=== PATIENT | female | born 1965 | race Caucasian/White ===

== ENCOUNTER → 2018-05-05 10:25 | Outpatient (CLI) | payer BC, OTHER, SELFPAY ==
[2018-05-05 11:22] LABS: Follicle Stimulating Hormone 83.7 mIU/mL
== END ==
PROVIDERS: Visit Provider Obstetrics & Gynecology
DX: N95.2 Postmenopausal atrophic vaginitis (principal)
CPT/HCPCS: 36415; 83001

== ENCOUNTER 2018-10-01 07:45 | Emergency (ER) | payer BC, OTHER, SELFPAY ==
[2018-10-01 07:45] VITALS: BP 124/74; PULSE 97; RESP 18; TEMP 36.5; O2SAT 99; BMI 24.8
--- NOTE | 2018-10-01 08:01 | CT_ITS ---
STUDY: CT ABDOMEN AND PELVIS WITHOUT CONTRAST REASON FOR EXAM: Female, 52 years old. Right-sided flank pain. Urinary retention. RADIATION DOSAGE (If Supplied By Facility): CTDIvol = ( 7.07 ) mGy, DLP = ( 318.00 ) mGycm TECHNIQUE: Transaxial images were obtained from the dome of the diaphragm to the symphysis pubis without oral contrast, and without intravenous contrast. Sagittal and coronal images were reconstructed. Individualized dose optimization techniques were used for this CT. COMPARISON: None. FINDINGS: The visualized lung bases are unremarkable. The visualized portions of the heart are within normal limits. Normal liver. Normal gallbladder and extrahepatic biliary system. Normal spleen. Normal pancreas. Normal bilateral adrenal glands. There is engorgement of the right kidney. Right perinephric and right periureteric stranding. Moderate degree of right hydronephrosis and right hydroureter due to a 3.2 mm calculus at the right ureterovesical junction. Left parapelvic cysts. Normal visualized stomach. Normal small intestine. Normal colon. The appendix is visualized and appears normal. Normal abdominal aorta. Normal inferior vena cava. Normal retroperitoneum. Normal urinary bladder. Phleboliths are seen within the pelvis. Small bilateral benign-appearing inguinal lymph nodes. There is a small umbilical hernia containing fat. Disc space narrowing and disc degeneration at the L5-S1 level. CT/Abdomen/Pelvis without Cont IMPRESSION: Moderate degree of right hydronephrosis and right hydroureter due to a 3.2 mm calculus at the right ureterovesical junction. Enlargement of the right kidney as well as a perinephric and periureteric stranding. Left parapelvic renal cysts. Electronically Signed: Scooter Perez MD at 9:19 EST , Service support ,
[2018-10-01 08:18] LABS: Mucous, Urine 0 SEEN /hpf (<or=2+); Red Blood Cells-Urine 0 SEEN /hpf (0-5)
[2018-10-01 08:21] LABS: Absolute Lymphocyte Count 0.55 X10^3/ul (0.83-4.51); Absolute Neutrophil Count 10.5 X10^3/uL (2.0-7.7); Basophil# 0.01 X10^3/uL; Basophil% 0.1 % (0-1); Eosinophil# 0.01 X10^3/uL; Eosinophils% 0.1 % (0-5); Hematocrit 41.8 % (37-47); Hemoglobin 13.7 g/dl (12.0-15.0); Lymphocyte # 0.55 X10^3/ul (4.0); Lymphocyte % 4.8 % (19-41); Mean Corp Hgb Conc 32.8 g/gl (32-36); Mean Corpuscular Hgb 30.1 pg (27.0-32.0); Mean Corpuscular Volume 91.9 fL (81-99); Mean Platelet Vol. 10.1 fl (6.2-12.0); Monocyte# 0.38 X10^3/uL; Monocyte% 3.3 % (0-10); Neutrophil # 10.46 X10^3/uL (2.7-7.7); Neutrophil % 91.5 % (47-70); Platelet Count 226 K/mm3 (150-450); RBC Distribution Width CV 12.4 % (11.6-14.6); RBC Distribution Width SD 40.6 fl (35.1-43.9); Red Blood Count 4.55 M/mm3 (4.2-5.4); White Blood Count 11.4 K/mm3 (4.4-11.0)
[2018-10-01 08:23] LABS: Differential Indicated SCAN CRITERIA MET; POSITIVE COUNT NO; POSITIVE DIFFERENTIAL YES; POSITIVE MORPHOLOGY NO
[2018-10-01 08:23] LABS: Color, Urine Yellow (Yellow); Glucose, Dipstick Normal (Normal); Ketone-Dipstick Negative (Negative); Leukocyte Esterase-Dipstick 100 /ul (Negative); Nitrite-Dipstick Negative (Negative); Occult Blood-Urine 50 /ul (Negative); Protein-Dipstick 15 mg/dl (Negative); Specific Gravity, Urine 1.025 (1.002-1.030); Urine Bilirubin Dipstick Negative (Negative); Urine Clarity Clear (Clear); Urine Urobilinogen Normal (Normal)
[2018-10-01] MEDS: 0.9% Normal Saline 1,000 ML 1000 ML IV (08:25)
[2018-10-01] MEDS: Ketorolac 30 MG/ML Syringe IV (08:25)
[2018-10-01 08:29] LABS: Lipase 130 U/L (73-393)
[2018-10-01 08:42] LABS: Pregnancy, Serum, hCG Quali. NEGATIVE Negative (0-9 Nonpreg)
[2018-10-01 08:43] LABS: Bacteria 1+ /hpf (None Seen); Squamous Epithelial Cells - UA 0-5 SEEN /hpf (5-10); White Blood Cells 0-5 SEEN /hpf (0-5)
[2018-10-01 09:23] LABS: ALB/GLOB Ratio 1.3 RATIO (0.9-2.4); AST(SGOT) 16 U/L (15-37); Alanine Aminotransfer ALT/SGPT 14 U/L (13-56); Albumin, Serum 4.2 g/dL (3.2-5.0); Alkaline Phosphatase 99 U/L (45-117); Anion Gap 10 (5-15); BUN 19 mg/dL (7-18); BUN/Creat Ratio 15.1 RATIO (10-20); Calcium,Total 9.1 mg/dL (8.5-10.1); Chloride 106 mmol/L (98-107); Creatinine, Serum 1.26 mg/dL (0.55-1.02); EST Glomerular Filtration Rate 47 mL/min (>60); Est Glom Filt Rate - Afr Amer 57 mL/min (>60); Estimated Creatinine Clearance 45.61 ml/min; Globulin 3.2 g/dL (2.2-4.2); Glucose 160 mg/dL (74-106); Potassium 3.9 mmol/L (3.5-5.1); Protein, Total 7.4 g/dL (6.4-8.2); Sodium Level 142 mmol/L (136-145)
--- NOTE | 2018-10-01 09:40 | ED.DCSUM_ITS ---
- ER Visit Summary Date of Service: 10/01/18 Chief Complaint: Pain History of Present Illness: The patient is a 52 F with right lower abdominal. Symptoms are sharp and stabbing. Patient tried Tums with no relief. She also reports decreased urine and one episode of vomiting. No history of this in the past. 2 C-sections. Physical Examination: Afebrile and vital signs unremarkable. Right pelvis tender to palpation. Mild CVA tenderness on the right. Otherwise exam unremarkable. Test Results: White count 11.4. Glucose 160, BUN 19, creatinine 1.26. Lipase and liver are normal. Urinalysis shows bacteria and 0-5 white cells. Positive leukocyte esterase. Culture pending. negative. CT showed a left renal cyst, mild right hydronephrosis and hydroureter with a 3.2 mm right UVJ stone. Emergency Department Course and Treatment: Patient treated with fluids and Toradol. She had good improvement of her pain but it started to return. She was treated with Grahn. Workup was unremarkable. She did have some elevation of her creatinine and a possible evolving UTI. Culture was sent. She was treated with Keflex. Plan will be outpatient follow-up with Dr. Acevedo. Prescription for pain medicine, Flomax, Keflex. Strain urine. Return for any new or worsening issues that may require hospitalization. Treatment Plan: As above Disposition: Discharge Impression: 1. Right ureteral colic This note was generated with [employer] dictation software. It may contain incorrect words, spelling, and punctuation that were not noted in review of the chart prior to signing ED Disposition - Plan for ED Patient: Referrals: Elsa Ferreira MD [Primary Care Provider] -
--- NOTE | 2018-10-01 09:40 | ED.DEP ---
ED Disposition - Plan for ED Patient: Instructions: ED Stone Renal W Colic Prescriptions: Hydrocodone Bitart/Apap 5-325 [[place] 5MG-325MG] 1 tab PO Q6H PRN PRN 3 Days #12 tab PRN Reason: Pain Ondansetron [Zofran Odt] 4 mg PO Q8H PRN PRN #10 tab PRN Reason: Nausea Cephalexin [Keflex] 500 mg PO Q6 #28 cap Tamsulosin HCl [Flomax] 0.4 mg PO DAILY #7 cap Referrals: Liam Acevedo MD [STAFF PHYSICIAN] -
[2018-10-01] MEDS: Ondansetron 4 MG/2 ML Vial IV (10:17)
[2018-10-01] MEDS: HYDROcodone Bitartrate/Apap 5/325 Tablet PO (10:17)
[2018-10-01] MEDS: Cephalexin 250 MG Capsule 500 MG PO (10:17)
[2018-10-01 10:28] VITALS: BP 125/83; PULSE 82; RESP 18; O2SAT 99
== END 2018-10-01 10:33 | disposition home or self-care (01) ==
PROVIDERS: Emergency Provider Emergency Medicine; Family Provider Internal Medicine; PCP Internal Medicine
DX: N13.2 Hydronephrosis with renal and ureteral calculous obstruction (principal)
CPT/HCPCS: 74176; 80053; 81001; 83690; 84703; 85025; 87086; 87088; 96361; 96374; 96375; 99284; A4216; J2405

== ENCOUNTER → 2018-10-06 16:36 | Outpatient (CLI) | payer BC, OTHER, SELFPAY ==
[2018-10-01 07:45] VITALS: BMI 24.8
--- NOTE | 2018-10-06 11:30 | CALC_PTH ---
PATIENT: TOBIN CLARKE LOC: [facility] U#:[id number] AGE/SX: 59/F ROOM: RE10/06/[address]: ROBINSON Yoon : 1965 BED: DIS: SPEC #: [id number] RECD: 10/06/18 16:47 STATUS: MOHAN FLORENTIN #: [id number] RICO: 10/06/18 11:[address]: Giselle Al NP DEPT: SURGICAL PATHOLOGY RECD BY: Tom Delaney ENTERED: 10/07/18 08:26 SP TYPE: Calculi OTHR DR: Dr. Elsa Ferreira MD Tissues: CALCULI Procedures: Surgery Specimen Level I HEADER OPERATION: Not noted PRE-OP DIAGNOSIS: Kidney stone TISSUE SUBMITTED: Kidney stone protocol GROSS DIAGNOSIS A fragment of stone, clinically kidney stone, submitted entirely for stone analysis. NOEMÍ:rebecca 10/07/18 COMMENT The calculus is submitted in its entirety for chemical stone analysis. The results from this study will be reported separately. GROSS DESCRIPTION Received is one container labeled with the patient's name and not further designated. The specimen consists of a fragment of brownish-black stone measuring 0.3 x 0.2 x 0.2 cm. The entire specimen is submitted for stone analysis. / NOEMÍ:rebecca 10/07/18 CPT: 04018
[2018-10-19 17:10] LABS: Ca Oxalate, Monohydrate 90 % (.); Size 4x3x2 mm (.)
== END ==
PROVIDERS: Family Provider Internal Medicine; PCP Internal Medicine; Referring Provider Nurse Practitioner Adult Health; Visit Provider Nurse Practitioner Adult Health
DX: N20.0 Calculus of kidney (principal)
CPT/HCPCS: 82360; 88300

== ENCOUNTER → 2018-10-30 15:31 | Outpatient (CLI) | payer BC, OTHER, SELFPAY ==
[2018-10-01 07:45] VITALS: BMI 24.8
[2018-10-30 16:37] LABS: Creatinine, Serum 0.88 mg/dL (0.55-1.02); EST Glomerular Filtration Rate 72 mL/min (>60); Est Glom Filt Rate - Afr Amer 87 mL/min (>60)
[2018-10-30 16:57] LABS: Color, Urine Yellow (Yellow); Glucose, Dipstick Normal (Normal); Ketone-Dipstick Negative (Negative); Leukocyte Esterase-Dipstick 500 /ul (Negative); Nitrite-Dipstick Negative (Negative); Occult Blood-Urine 10 /ul (Negative); Protein-Dipstick Negative (Negative); Specific Gravity, Urine 1.015 (1.002-1.030); Urine Bilirubin Dipstick Negative (Negative); Urine Clarity Clear (Clear); Urine Urobilinogen 4 mg/dl (Normal); Urine pH 6.5 (5.0 - 8.0)
[2018-10-30 17:15] LABS: White Blood Cells 10-25 SEEN /hpf (0-5)
[2018-10-30 17:16] LABS: Bacteria 1+ /hpf (None Seen); Mucous, Urine 1+ /hpf (<or=2+); Red Blood Cells-Urine 0-5 SEEN /hpf (0-5); Squamous Epithelial Cells - UA 0-5 SEEN /hpf (5-10)
== END ==
PROVIDERS: Family Provider Internal Medicine; PCP Internal Medicine; Referring Provider Nurse Practitioner Adult Health; Visit Provider Nurse Practitioner Adult Health
DX: N20.1 Calculus of ureter (principal); R31.29 Other microscopic hematuria; R79.89 Other specified abnormal findings of blood chemistry
CPT/HCPCS: 36415; 81001; 82565

== ENCOUNTER → 2019-07-08 11:44 | Outpatient (CLI) | payer BC, OTHER, SELFPAY ==
[2019-07-12 16:07] LABS: Age Gdln ACOG Testing 30-65 (.)
[2019-07-12 22:31] LABS: HPV APTIMA, High Risk Negative (Negative); HPV Reflexed? YES, CHARGE PATIENT
== END ==
PROVIDERS: Family Provider Internal Medicine; PCP Internal Medicine; Visit Provider Obstetrics & Gynecology
DX: Z12.4 Encounter for screening for malignant neoplasm of cervix (principal)
CPT/HCPCS: 87624; 88175; G0145

== ENCOUNTER → 2019-08-04 16:17 | Outpatient (CLI) | payer BC, OTHER, SELFPAY ==
--- NOTE | 2019-08-04 16:20 | BI_ITS ---
MAMMOGRAPHY - BILATERAL SCREENING REASON FOR EXAM: Female, 53 years old. Routine annual screening examination. PERTINENT HISTORY: Aunt with breast cancer. TECHNIQUE: Digital bilateral breast will (3D mammographic acquisition) in the CC and MLO projections. 2-D mediolateral oblique (MLO) and craniocaudad (CC) views of both breasts were obtained. CAD: Full Field Digital Mammography with Computer Added Detection was performed. COMPARISON: Comparison is made with prior examination dated August 29, 2015. FINDINGS: Breast Composition: The breasts are heterogeneously dense, which may obscure small masses. There are no dominant masses or suspicious calcifications. Stable small benign-appearing bilateral axillary lymph nodes. No other significant abnormalities are identified. There has been no significant change since the prior study. BI/SCREEN MAMM (CAD) W/WILL BILAT IMPRESSION: Stable bilateral screening mammogram. Yearly follow-up mammogram recommended. (A) ASSESSMENT CATEGORY: BIRADS Category 2: Benign. A letter regarding these results will be sent to the patient by the facility within 30 days. Approximately 10% of breast cancers are not detected by mammography. A normal mammogram should not delay biopsy of a clinically suspicious abnormality. [id number] Electronically Signed: Scooter Perez, at 9:13 EST , Service support ,
== END ==
PROVIDERS: Family Provider Internal Medicine; PCP Internal Medicine; Referring Provider Obstetrics & Gynecology; Visit Provider Obstetrics & Gynecology
DX: Z12.31 Encounter for screening mammogram for malignant neoplasm of breast (principal)
CPT/HCPCS: 77063; 77067

== ENCOUNTER → 2022-02-07 | Outpatient (CLI) | payer BC, OTHER, SELFPAY ==
[2022-02-13 17:42] LABS: HPV APTIMA, High Risk Negative (Negative)
== END | disposition home or self-care (01) ==
LOC: LABSPEC 16:20
PROVIDERS: PCP Internal Medicine; Visit Provider Student in an Organized Health Care Education/Training Program
DX: Z12.4 Encounter for screening for malignant neoplasm of cervix (principal)
CPT/HCPCS: 87624; 88175; G0145

== ENCOUNTER 2023-09-01 21:06 | Observation (INO) | payer BC, SELFPAY ==
[2023-09-01 21:08] VITALS: BP 161/88; PULSE 96; RESP 15; TEMP 36.1; O2SAT 97; BMI 27.4
--- NOTE | 2023-09-01 21:25 | EKG12_ITS ---
Test Reason : CP Blood Pressure : / mmHG Vent. Rate : 096 BPM Atrial Rate : 096 BPM P-R Int : 216 ms QRS Dur : 094 ms QT Int : 366 ms P-R-T Axes : 048 -11 031 degrees QTc Int : 462 ms Sinus rhythm with 1st degree A-V block Nonspecific ST abnormality Abnormal ECG Confirmed by SHAWNEE VENEGAS, JANEE ([id number]), order editor RANDELL INGRAM ([id number]) on 09/03/2023 9:20:35 AM Referred By: Confirmed By:JANEE MALLORY MD
--- NOTE | 2023-09-01 21:30 | RAD_ITS ---
STUDY: X-RAY CHEST REASON FOR EXAM: Female, 57 years old. chest pain TECHNIQUE: Single AP portable view of the chest. COMPARISON: 07/03/2016. FINDINGS: The lungs are clear and expanded. There is no demonstrated pleural abnormality. Normal size heart. Normal mediastinum and tam. Normal visualized pulmonary arteries. Normal visualized aortic arch and descending thoracic aorta. Normal visualized thoracic spine. Normal visualized ribs, clavicles, and shoulders. There is no demonstrated abnormality of the visualized soft tissue structures of the upper abdomen. RAD/Chest 1 View (Portable) IMPRESSION: Normal x-ray examination of the chest. Electronically Signed: Madison Chen MD at 22:05 EST ,
[2023-09-01 21:32] VITALS: O2SAT 97
[2023-09-01 21:39] LABS: Absolute Lymphocyte Count 1.15 X10^3/uL (0.83-4.51); Absolute Neutrophil Count 5.8 X10^3/uL (2.0-7.7); Basophil# 0.02 X10^3/uL; Basophil% 0.3 % (0-1); Eosinophil# 0.07 X10^3/uL; Hemoglobin 14.7 g/dL (12.0-15.0); Lymphocyte # 1.15 X10^3/ul (0.83-4.51); Lymphocyte % 15.7 % (19-41); Mean Corp Hgb Conc 32.7 g/dL (32-36); Mean Corpuscular Hgb 29.6 pg (27.0-32.0); Mean Corpuscular Volume 90.5 fL (81-99); Mean Platelet Vol. 9.8 fl (6.2-12.0); Monocyte# 0.31 X10^3/uL; Monocyte% 4.2 % (0-10); NRBC Flagged by Analyzer 0 % (0-5); Neutrophil # 5.77 X10^3/uL (2.7-7.7); Neutrophil % 78.5 % (47-70); Platelet Count 227 K/mm3 (150-450); RBC Distribution Width CV 12.1 % (11.6-14.6); RBC Distribution Width SD 40.1 fl (35.1-43.9); Red Blood Count 4.97 M/mm3 (4.2-5.4); White Blood Count 7.3 K/mm3 (4.4-11.0)
--- OUTSIDE RECORDS SUMMARY | 2023-09-01 21:42 | XMS RPT_ITS | CCD ---
Author Name Unknown Address [id number] [place] [address] Organization [facility] Care Team Providers Care Fundraising Specialist Name Role Phone Mya Ferreira MD Primary Care Provider MYA FERREIRA Primary Care Unavailable MYA FERREIRA Referring Unavailable MYA FERREIRA Referring Unavailable MYA FERREIRA Primary Care Unavailable MYA FERREIRA Primary Care Unavailable MYA FERREIRA Primary Care Unavailable MICHAEL LIMA Attending Unavailable MYA FERREIRA Primary Care Unavailable MYA FERREIRA Attending Unavailable Mya Ferreira MD Primary Care Provider Medications Current Medications Medication Drug Class(es) Dates Sig (Normalized) Sig (Original) ciprofloxacin 3 mg/ml ophthalmic solution (1 source) Quinolone Antimicrobial Start: 06-12-2023 End: 06-19-2023 take 1-2 drop(s) into the eye(s) every two hours, then take 1-2 drop(s) into the eye(s) every four hours ciprofloxacin HCl (CILOXAN) 0.3 % ophthalmic solution Use 1-2 drops inside right lower eyelid(s) every 2 hours while awake for 2 days, then 1-2 drops every 4 hours for next 5 days. 10 mL 0 06/12/2023 06/19/2023 Active Completed/Discontinued Medications Medication Drug Class(es) Dates Sig (Normalized) Sig (Original) cetirizine hydrochloride 10 mg oral tablet (8 sources) Histamine-1 Receptor Antagonist cetirizine (ZYRTEC) 10 mg tablet Take 10 mg by mouth as needed. 0 Active Problems Active Problems Problem Classification Problem Date Documented Date Episodic/Chronic Allergic reactions (1 source) Urticaria; Translations: [Urticaria, unspecified] Episodic Anxiety disorders (13 sources) Panic disorder without agoraphobia; Translations: [Panic disorder [episodic paroxysmal anxiety]] Onset: 09-23-2005 09-23-2005 Chronic Diabetes mellitus without complication (2 sources) Increased glucose level; Translations: [Other abnormal glucose] Onset: 06-12-2023 04-30-2023 Episodic Inflammation; infection of eye (except that caused by tuberculosis or sexually transmitteddisease) (1 source) Conjunctivitis of right eye; Translations: [Unspecified conjunctivitis] 06-12-2023 Episodic Joint disorders and dislocations; trauma-related (2 sources) Chondromalacia of patella; Translations: [Chondromalacia patellae, unspecified knee] Chronic Mood disorders (13 sources) Depressive disorder; Translations: [Other specified depressive episodes] Onset: 09-23-2005 09-23-2005 Chronic Other aftercare (1 source) Other salvage determiner (current) drug therapy; Translations: [Encounter for long-term current use of medication] Onset: 06-12-2023 Episodic Other injuries and conditions due to external causes (1 source) Open wound; Translations: [Other injury of unspecified body region, initial encounter] Episodic Other non-traumatic joint disorders (2 sources) Pain of left wrist; Translations: [Pain in left wrist] Episodic Other screening for suspected conditions (not mental disorders or infectious disease) (9 sources) Patient encounter status; Translations: [Encounter for screening mammogram for malignant neoplasm of breast] Onset: 04-17-2023 Episodic Skin and subcutaneous tissue infections (1 source) Abscess of skin and/or subcutaneous tissue; Translations: [Cutaneous abscess, unspecified] Episodic Spondylosis; intervertebral disc disorders; other back problems (2 sources) Acute low back pain; Translations: [Acute left-sided low back pain without sciatica] Episodic Past or Other Problems Problem Classification Problem Date Documented Da te Episodic/Chronic Other skin disorders (13 sources) Chloasma; Translations: [Chloasma] Onset: 07-21-2012 07-21-2012 Episodic Results Test Name Value Interpretation Reference Range Facil ity Vital Signs Date Time Vital Sign Value Performing Clinician Faci lity 06-12-2023 11:59-0400 Body temperature 97.81 [degF] Diane Cardenas APRN.GENETIC SUPERVISOR Work Phone: [facility] 06-12-2023 11:59-0400 Body weight 71.67 kg Diane Cardenas EVENT TECHNICIAN.GENETIC SUPERVISOR Work Phone: [facility] 06-12-2023 11:59-0400 Diastolic blood pressure 70 mm[Hg] Diane Cardenas EVENT TECHNICIAN.GENETIC SUPERVISOR Work Phone: [facility] 06-12-2023 11:59-0400 Heart rate 81 /min Diane Cardenas EVENT TECHNICIAN.GENETIC SUPERVISOR Work Phone: [facility] 06-12-2023 11:59-0400 Respiratory rate 16 /min Diane Cardenas EVENT TECHNICIAN.GENETIC SUPERVISOR Work Phone: [facility] 06-12-2023 11:59-0400 SaO2% (BldA) [Mass fraction] 99 % Diane Cardenas EVENT TECHNICIAN.GENETIC SUPERVISOR Work Phone: [facility] 06-12-2023 11:59-0400 Systolic blood pressure 100 mm[Hg] Diane Cardenas EVENT TECHNICIAN.GENETIC SUPERVISOR Work Phone: [facility] 05-16-2023 10:26-0400 Body height 162.6 cm Michael Lima MD Work Phone: [facility] 05-16-2023 10:26-0400 Body weight 72.3 kg Michael Lima MD Work Phone: [facility] 05-16-2023 10:26-0400 Diastolic blood pressure 62 mm[Hg] Michael Lima MD Work Phone: [facility] 05-16-2023 10:26-0400 Systolic blood pressure 100 mm[Hg] Michael Lima MD Work Phone: [facility] 04-30-2023 08:06-0400 Body height 160 cm Mya Ferreira MD Work Phone: [facility] 04-30-2023 08:06-0400 Body weight 72.12 kg Mya Ferreira MD Work Phone: [facility] 04-30-2023 08:06-0400 Diastolic blood pressure 74 mm[Hg] Mya Ferreira MD Work Phone: [facility] 04-30-2023 08:06-0400 Heart rate 80 /min Mya Ferreira MD Work Phone: [facility] 04-30-2023 08:06-0400 Respiratory rate 16 /min Mya Ferreira MD Work Phone: [facility] 04-30-2023 08:06-0400 Systolic blood pressure 122 mm[Hg] Mya Ferreira MD Work Phone: [facility] 06-12-2022 10:27-0400 Body temperature 97.81 [degF] Prudence Villagomez APRN.GENETIC SUPERVISOR Work Phone: [facility] 06-12-2022 10:27-0400 Body weight 73.03 kg Prudence Villagomez APRN.GENETIC SUPERVISOR Work Phone: [facility] 06-12-2022 10:27-0400 Diastolic blood pressure 80 mm[Hg] Prudence Villagomez APRN.GENETIC SUPERVISOR Work Phone: [facility] 06-12-2022 10:27-0400 Heart rate 84 /min Prudence Villagomez APRN.GENETIC SUPERVISOR Work Phone: [facility] 06-12-2022 10:27-0400 Respiratory rate 16 /min Prudence Villagomez APRN.GENETIC SUPERVISOR Work Phone: [facility] 06-12-2022 10:27-0400 SaO2% (BldA) [Mass fraction] 97 % Prudence Villagomez APRN.GENETIC SUPERVISOR Work Phone: [facility] 06-12-2022 10:27-0400 Systolic blood pressure 128 mm[Hg] Prudence Villagomez APRN.GENETIC SUPERVISOR Work Phone: [facility] 03-06-2022 13:03-0400 Body height 162 cm Mya Ferreira MD Work Phone: [facility] 03-06-2022 13:03-0400 Body weight 71.67 kg Mya Ferreira MD Work Phone: [facility] 03-06-2022 13:03-0400 Diastolic blood pressure 70 mm[Hg] Mya Ferreira MD Work Phone: [facility] 03-06-2022 13:03-0400 Heart rate 84 /min Mya Ferreira MD Work Phone: [facility] 03-06-2022 13:03-0400 SaO2% (BldA) [Mass fraction] 99 % Mya Ferreira MD Work Phone: [facility] 03-06-2022 13:03-0400 Systolic blood pressure 108 mm[Hg] Mya Ferreira MD Work Phone: [facility] 03-04-2022 08:04-0400 Body height 162.6 cm Dina Sanders MD Work Phone: [facility] 03-04-2022 08:04-0400 Body temperature 97.9 [degF] Dina Sanders MD Work Phone: [facility] 03-04-2022 08:04-0400 Body weight 72.39 kg Dina Sanders MD Work Phone: [facility] 03-04-2022 08:04-0400 Diastolic blood pressure 76 mm[Hg] Dina Sanders MD Work Phone: [facility] 03-04-2022 08:04-0400 Heart rate 101 /min Dina Sanders MD Work Phone: [facility] 03-04-2022 08:04-0400 SaO2% (BldA) [Mass fraction] 97 % Dina Sanders MD Work Phone: [facility] 03-04-2022 08:04-0400 Systolic blood pressure 118 mm[Hg] Dina Sanders MD Work Phone: [facility] 02-28-2022 14:19-0400 Body temperature 97.5 [degF] Prudence Villagomez APRN.GENETIC SUPERVISOR Work Phone: [facility] 02-28-2022 14:19-0400 Body weight 73.48 kg Prudence Villagomez APRN.GENETIC SUPERVISOR Work Phone: [facility] 02-28-2022 14:19-0400 Diastolic blood pressure 86 mm[Hg] Prudence Villagomez APRN.GENETIC SUPERVISOR Work Phone: [facility] 02-28-2022 14:19-0400 Heart rate 88 /min Prudence Villagomez APRN.GENETIC SUPERVISOR Work Phone: [facility] 02-28-2022 14:19-0400 Respiratory rate 20 /min Prudence Villagomez APRN.GENETIC SUPERVISOR Work Phone: [facility] 02-28-2022 14:19-0400 SaO2% (BldA) [Mass fraction] 96 % Purdence Villagomez APRN.GENETIC SUPERVISOR Work Phone: [facility] 02-28-2022 14:19-0400 Systolic blood pressure 124 mm[Hg] Prudence Villagomez APRN.GENETIC SUPERVISOR Work Phone: [facility] Encounters Encounter Date Encounter Type Care Provider Facility Start: 06-12-2023 End: 06-13-2023 ambulatory MYA FERREIRA Facility:[facility] Start: 06-12-2023 End: 06-12-2023 Patient encounter procedure Diane Greenmery RODRIGUEZ.GENETIC SUPERVISOR Work Phone: [facility] Procedures Date Procedure Procedure Detail Performing Clinician Start: 04-17-2023 End: 04-17-2023 Mammography Bulk Order Provider Start: 12-10-2021 Lipid 1996 panel - S mark or Plasma Mya Ferreira MD Work Phone: Start: 05-03-2021 Colonoscopy Mya charles MD Work Phone: Start: 08-04-2019 Mammography Mya charles MD Work Phone: Plan of Treatment Date Care Activity Detail Author Start: 02-07-2027 HPV TESTING HPV TESTING [facility] Start: 12-10-2026 Lipid 1996 panel - Serum or Plasma Lipid Screening [facility] Start: 12-10-2026 LIPID SCREEN LIPID SCREEN [facility] Start: 06-12-2026 Diabetes Screening Diabetes Screening [facility] Start: 05-03-2026 Colonoscopy COLONOSCOPY [facility] Start: 05-03-2026 COLORECTAL CANCER SCREENING COLORECTAL CANCER SCREENING [facility] Start: 03-25-2026 Urine microalbumin profile [facility] Start: 02-07-2025 PAP TESTING PAP TESTING [facility] Start: 12-10-2024 DIABETES SCREEN DIABETES SCREEN [facility] Start: 12-10-2024 Diabetes Screening Diabetes Screening [facility] Start: 04-30-2024 End: 06-30-2024 CBC panel - Blood by Automated count CBC Lab Routine Encounter for long-term current use of medication Routine medical exam Expected: 04/30/2024 (Approximate), Expires: 06/30/2024 [facility] Work Phone: Immunizations Immunization Date Immunization Notes Care Provider Maegan dawson 06-19-2022 Seasonal, trivalent, recombinant, injectable influenza vaccine, preservative free Mammography Coordinator [facility] Work Phone: 06-19-2022 influenza virus vaccine, unspecified formulation Mya Ferreira MD Work Phone: [facility] 05-01-2021 influenza, injectabl e, quadrivalent, preservative free Mya Ferreira MD Work Phone: [facility] Work Phone: 10-07-2020 COVID-19 vaccine, fu ll dose (MODERNA) Mya Ferreira MD Work Phone: [facility] Work Phone: 09-08-2020 COVID-19 vaccine, fu ll dose (MODERNA) Mya Ferreira MD Work Phone: [facility] Work Phone: 04-20-2020 influenza, seasonal, injectable Mya Ferreira MD Work Phone: [facility] Work Phone: 04-20-2020 Seasonal, quadrivalent, recombinant, injectable influenza vaccine, preservative free Mya Ferreira MD Work Phone: [facility] Work Phone: 06-18-2019 zoster vaccine recombinant Mya Ferreira MD Work Phone: [facility] Work Phone: 04-08-2019 Seasonal, quadrivalent, recombinant, injectable influenza vaccine, preservative free Mya Ferreira MD Work Phone: [facility] Work Phone: 04-08-2019 zoster vaccine recombinant Mya Ferreira MD Work Phone: [facility] Work Phone: 01-25-2019 hepatitis A vaccine, adult dosage Mya Ferreira MD Work Phone: [facility] Work Phone: 01-25-2019 hepatitis A vaccine, unspecified formulation Mya Ferreira MD Work Phone: [facility] Work Phone: 04-30-2018 influenza, injectabl e, quadrivalent, preservative free Mya Ferreira MD Work Phone: [facility] Work Phone: 04-30-2018 influenza, seasonal, injectable Mya Ferreira MD Work Phone: [facility] Work Phone: 12-18-2017 hepatitis A vaccine, adult dosage Mya Ferreira MD Work Phone: [facility] Work Phone: 12-18-2017 hepatitis A vaccine, unspecified formulation Mya Ferreira MD Work Phone: [facility] Work Phone: 03-24-2017 influenza, injectabl e, quadrivalent, contains preservative Mya Ferreira MD Work Phone: [facility] 03-24-2017 influenza, seasonal, injectable, preservative free Mya Ferreira MD Work Phone: [facility] Work Phone: 03-25-2016 influenza, injectabl e, quadrivalent, preservative free Mya Ferreira MD Work Phone: [facility] Work Phone: 03-25-2016 influenza, seasonal, injectable Mya Ferreira MD Work Phone: [facility] 03-25-2016 tetanus toxoid, reduced diphtheria toxoid, and acellular pertussis vaccine, adsorbed Mya Ferreira MD Work Phone: [facility] Work Phone: 04-13-2015 influenza, seasonal, injectable Mya Ferreira MD Work Phone: [facility] Work Phone: 05-28-2014 hepatitis B vaccine, adult dosage Mya Ferreira MD Work Phone: [facility] 05-28-2014 hepatitis B vaccine, unspecified formulation Mya Ferreira MD Work Phone: [facility] 05-12-2014 influenza, seasonal, injectable Mya Ferreira MD Work Phone: [facility] 12-30-2013 hepatitis B vaccine, adult dosage Mya Ferreira MD Work Phone: [facility] 11-23-2013 hepatitis B immune globulin Mya Ferreira MD Work Phone: [facility] 11-23-2013 hepatitis B vaccine, adult dosage Michael Lima MD Work Phone: [facility] Work Phone: 05-29-2013 influenza virus vaccine, unspecified formulation Mya Ferreira MD Work Phone: [facility] 06-01-2012 influenza virus vaccine, unspecified formulation Mya Ferreira MD Work Phone: [facility] 05-18-2009 influenza virus vaccine, live, attenuated, for intranasal use Mya Ferreira MD Work Phone: [facility] Work Phone: 06-22-2008 influenza virus vaccine, unspecified formulation Mya Ferreira MD Work Phone: [facility] Work Phone: 06-16-2007 influenza virus vaccine, unspecified formulation Mya Ferreira MD Work Phone: [facility] Work Phone: 06-17-2006 influenza virus vaccine, unspecified formulation Mya Ferreira MD Work Phone: [facility] Work Phone: 04-15-2006 tetanus toxoid, reduced diphtheria toxoid, and acellular pertussis vaccine, adsorbed Mya Ferreira MD Work Phone: [facility] Work Phone: Payers Date Payer Category Payer Medicaid [id number] 2021 Unknown [employer] BLUE CARD PPO OOS [id number] 2021-Present [phone] [address] [place] [address] PPO 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 2017 Unknown [id number] Social History Date Type Detail Facility Start: 07-28-2019 End: 06-12-2022 Tobacco smoking status NHIS Never smoked tobacco [facility] Start: 05-11-2021 End: 06-12-2022 Alcohol intake Current non-drinker of alcohol (finding) [facility] Start: 02-21-2020 End: 08-06-2020 History SDOH Alcohol Frequency 2 [facility] Start: 02-21-2020 End: 08-06-2020 History SDOH Alcohol Std Drinks 1 [facility] Start: 02-21-2020 History SDOH Social Connections Get Together 3 [facility] Start: 02-21-2020 History SDOH Financial 5 [facility] Start: 02-20-2020 Education 17 [facility] Start: 1965 Sex Assigned At Female [facility] Start: 02-18-2022 End: 06-12-2022 Exposure to SARS-CoV-2 (event) Not sure [facility] Work Phone: Start: 07-28-2019 End: 06-12-2022 Tobacco use and exposure Smokeless tobacco non-user [facility] Start: 02-20-2020 End: 09-13-2022 History of Social function [facility] Start: 02-20-2020 End: 09-13-2022 Social connection and isolation panel [facility] Do you belong to any clubs or organizations such as sabianist groups, unions, fraternal or athletic groups, or school groups? Yes [facility] Are you now , , , , never or living with a partner? [facility] How often to you hav e a drink containing alcohol? Monthly or less [facility] How many standard dr inks containing alcohol do you have on a typical day? 1 or 2 [facility] How often do you hav e 6 or more drinks on 1 occasion? Never [facility] How hard is it for y ou to pay for the very basics like food, housing, medical care, and heating Not hard at all [facility] Do you feel stress - tense, restless, nervous, or anxious, or unable to sleep at night because your mind is troubled all the time - these days [OSQ] Only a little [facility] (I/We) worried wheth er (my/our) food would run out before (I/we) got money to buy more. Never true [facility] In the past 12 month s, was there a time when you were not able to pay the mortgage or rent on time? No [facility] Start: 02-20-2020 Gender identity Identifies as female gender (finding) [facility] Start: 02-20-2020 Sexual orientation Heterosexual (finding) [facility] How often to you hav e a drink containing alcohol? 2-4 times a month [facility] Clinical Notes 02-28-2022 to 06-12-2023 Addendum Note - Diane Cardenas APRN.GENETIC SUPERVISOR - 06/12/2023 12:48 PM Diane Ayala APRN.ROBIN - 06/12/2023 12:14 PM EDTMichael Lima MD - 05/16/2023 10:22 AM EDT Note Date & Type Note Facility 06-12-2023 Note HNO ID: [id number] Author: Diane Cardenas APRN.ROBIN Service: ? Author Type: Nurse Practitioner Type: Progress Notes Filed: 06/12/2023 12:24 PM Note Text: This note was created using NoteWriter. Subjective Tobin Clarke is a 57 year old female. 57 year old female with no PMH presents for eye complaints. Acute onset 2 days ago Right eye +redness +itching +drainage Denies accompanying URI Matted eyelids when awakening Denies blurred vision, double vision or loss of vision Denies contact lens or glasses. Denies trauma or injury Denies feelings of FB The history is provided by the patient. No continuous washer operator was used. Eye Problem This is a new problem. The current episode started in the past 7 days. The problem occurs constantly. The problem has been unchanged. Pertinent negatives include no abdominal pain, arthralgias, chest pain, coughing, fatigue, fever, headaches, nausea, rash, urinary symptoms or vomiting. Nothing aggravates the symptoms. She has tried nothing for the symptoms. The treatment provided no relief. PAST MEDICAL HISTORY Diagnosis Date Arthritis DEPRESSIVE DISORDER NEC 09/23/2005 Melasma 07/21/2012 Panic disorder without agoraphobia 09/23/2005 PAST SURGICAL HISTORY Procedure Laterality Date DELIVERY ONLY 1995, 1999 COLONOSCOPY FLX DX W/COLLJ SPEC WHEN PFRMD 05/03/2021 EGD W/O [facility] SPEC VARICIES INJ 2018 ALLERGIES Patient has no known allergies. MEDICATIONS meloxicam (MOBIC) 15 mg tablet Take 1 tablet by mouth once daily. cyclobenzaprine (FLEXERIL) 10 mg tablet Take 1 tablet by mouth every 8 hours as needed for muscle spasm. cetirizine (ZYRTEC) 10 mg tablet Take 10 mg by mouth as needed. estradiol (ESTRACE) 0.01 % (0.1 mg/gram) vaginal cream Apply pea-sized amount to perineum and 1 applicator vaginally Mon, Wed, Fri for atrophic vaginitis. Cholecalciferol, Vitamin D3, 2,000 unit ORAL Cap Take 1 tablet by mouth once daily. FAMILY HISTORY Problem Relation Age of Onset Colon Polyps Mother other (osteoarthritis [Other]) Mother Coronary Artery Disease Father Hypertension Father Lipids Father Lung Cancer Father NSC; smoker Lipids Sister Lipids Brother Lipids Paternal Grandmother Coronary Artery Disease Paternal Grandmother Lipids Paternal Grandfather Coronary Artery Disease Paternal Grandfather Breast Cancer Paternal Aunt Social History Tobacco Use Smoking status: Never Smokeless tobacco: Never Vaping Use Vaping Use: Never used Substance Use Topics Alcohol use: No Drug use: No Review of Systems Constitutional: Negative for activity change, appetite change, fatigue and fever. Eyes: Positive for discharge, redness and itching. Negative for photophobia, pain and visual disturbance. Respiratory: Negative for apnea, cough, choking and chest tightness. Cardiovascular: Negative for chest pain, palpitations and leg swelling. Gastrointestinal: Negative for abdominal pain, diarrhea, nausea and vomiting. Musculoskeletal: Negative for arthralgias and back pain. Skin: Negative for color change, pallor, rash and wound. Allergic/Immunologic: Negative for environmental allergies, food allergies and immunocompromised state. Neurological: Negative for dizziness, facial asymmetry and headaches. Hematological: Negative for adenopathy. Does not bruise/bleed easily. Psychiatric/Behavioral: Negative for agitation and behavioral problems. Objective BP 100/70 Pulse 81 Temp 36.6 ?C (97.8 ?F) Resp 16 Wt 71.7 kg (158 lb) LMP 08/25/2016 (Approximate) SpO2 99% BMI 27.12 kg/m? Physical Exam Vitals and nursing note reviewed. Constitutional: General: She is not in acute distress. Appearance: Normal appearance. She is normal weight. She is not ill-appearing, toxic-appearing or diaphoretic. HENT: Head: Normocephalic and atraumatic. Right Ear: Ear canal and external ear normal. Left Ear: Ear canal and external ear normal. Nose: Nose normal. No congestion or rhinorrhea. Mouth/Throat: Mouth: Mucous membranes are moist. Pharynx: No oropharyngeal exudate or posterior oropharyngeal erythema. Eyes: General: Right eye: Discharge present. Left eye: No discharge. Extraocular Movements: Extraocular movements intact. Pupils: Pupils are equal, round, and reactive to light. Comments: OD injected Marginal eyelid debris EOM intact PERRLA Vision grossly intact Cardiovascular: Rate and Rhythm: Normal rate and regular rhythm. Pulses: Normal pulses. Heart sounds: Normal heart sounds. No murmur heard. No friction rub. Pulmonary: Effort: Pulmonary effort is normal. No respiratory distress. Breath sounds: Normal breath sounds. No stridor. No wheezing, rhonchi or rales. Chest: Chest wall: No tenderness. Abdominal: General: Abdomen is flat. There is no distension. Palpations: Abdomen is soft. There is no mass. Tenderness: There is no abdominal tenderness. There is no r (more content not included)... [facility] 06-12-2023 Miscellaneous Notes Addended by: DIANE CARDENAS on: 06/12/2023 12:48 PM Modules accepted: Orders documented in this encounter [facility] 06-12-2023 History of Presen t illness Narrative This note was created using [employer]. Subjective Tobin Clarke is a 57 year old female. 57 year old female with no PMH presents for eye complaints. Acute onset 2 days ago Right eye +redness +itching +drainage Denies accompanying URI Matted eyelids when awakening Denies blurred vision, double vision or loss of vision Denies contact lens or glasses. Denies trauma or injury Denies feelings of FB The history is provided by the patient. No continuous washer operator was used. Eye Problem This is a new problem. The current episode started in the past 7 days. The problem occurs constantly. The problem has been unchanged. Pertinent negatives include no abdominal pain, arthralgias, chest pain, coughing, fatigue, fever, headaches, nausea, rash, urinary symptoms or vomiting. Nothing aggravates the symptoms. She has tried nothing for the symptoms. The treatment provided no relief. PAST MEDICAL HISTORY Diagnosis Date Arthritis DEPRESSIVE DISORDER NEC 09/23/2005 Melasma 07/21/2012 Panic disorder without agoraphobia 09/23/2005 PAST SURGICAL HISTORY Procedure Laterality Date DELIVERY ONLY 1995, 1999 COLONOSCOPY FLX DX W/COLLJ SPEC WHEN PFRMD 05/03/2021 EGD W/O [facility] SPEC VARICIES INJ 2018 ALLERGIES Patient has no known allergies. MEDICATIONS meloxicam (MOBIC) 15 mg tablet Take 1 tablet by mouth once daily. cyclobenzaprine (FLEXERIL) 10 mg tablet Take 1 tablet by mouth every 8 hours as needed for muscle spasm. cetirizine (ZYRTEC) 10 mg tablet Take 10 mg by mouth as needed. estradiol (ESTRACE) 0.01 % (0.1 mg/gram) vaginal cream Apply pea-sized amount to perineum and 1 applicator vaginally Mon, Wed, Fri for atrophic vaginitis. Cholecalciferol, Vitamin D3, 2,000 unit ORAL Cap Take 1 tablet by mouth once daily. FAMILY HISTORY Problem Relation Age of Onset Colon Polyps Mother other (osteoarthritis [Other]) Mother Coronary Artery Disease Father Hypertension Father Lipids Father Lung Cancer Father NSC; smoker Lipids Sister Lipids Brother Lipids Paternal Grandmother Coronary Artery Disease Paternal Grandmother Lipids Paternal Grandfather Coronary Artery Disease Paternal Grandfather Breast Cancer Paternal Aunt Social History Tobacco Use Smoking status: Never Smokeless tobacco: Never Vaping Use Vaping Use: Never used Substance Use Topics Alcohol use: No Drug use: No Review of Systems Constitutional: Negative for activity change, appetite change, fatigue and fever. Eyes: Positive for discharge, redness and itching. Negative for photophobia, pain and visual disturbance. Respiratory: Negative for apnea, cough, choking and chest tightness. Cardiovascular: Negative for chest pain, palpitations and leg swelling. Gastrointestinal: Negative for abdominal pain, diarrhea, nausea and vomiting. Musculoskeletal: Negative for arthralgias and back pain. Skin: Negative for color change, pallor, rash and wound. Allergic/Immunologic: Negative for environmental allergies, food allergies and immunocompromised state. Neurological: Negative for dizziness, facial asymmetry and headaches. Hematological: Negative for adenopathy. Does not bruise/bleed easily. Psychiatric/Behavioral: Negative for agitation and behavioral problems. Objective BP 100/70 Pulse 81 Temp 36.6 C (97.8 F) Resp 16 Wt 71.7 kg (158 lb) LMP 08/25/2016 (Approximate) SpO2 99% BMI 27.12 kg/m Physical Exam Vitals and nursing note reviewed. Constitutional: General: She is not in acute distress. Appearance: Normal appearance. She is normal weight. She is not ill-appearing, toxic-appearing or diaphoretic. HENT: Head: Normocephalic and atraumatic. Right Ear: Ear canal and external ear normal. Left Ear: Ear canal and external ear normal. Nose: Nose normal. No congestion or rhinorrhea. Mouth/Throat: Mouth: Mucous membranes are moist. Pharynx: No oropharyngeal exudate or posterior oropharyngeal erythema. Eyes: General: Right eye: Discharge present. Left eye: No discharge. Extraocular Movements: Extraocular movements intact. Pupils: Pupils are equal, round, and reactive to light. Comments: OD injected Marginal eyelid debris EOM intact PERRLA Vision grossly intact Cardiovascular: Rate and Rhythm: Normal rate and regular rhythm. Pulses: Normal pulses. Heart sounds: Normal heart sounds. No murmur heard. No friction rub. Pulmonary: Effort: Pulmonary effort is normal. No respiratory distress. Breath sounds: Normal breath sounds. No stridor. No wheezing, rhonchi or rales. Chest: Chest wall: No tenderness. Abdominal: General: Abdomen is flat. There is no distension. Palpations: Abdomen is soft. There is no mass. Tenderness: There is no abdominal tenderness. There is no right CVA tenderness, left CVA tenderness, guarding or rebound. Hernia: No hernia is present. Musculoskeletal: General: No swelling, tenderness, deformity or signs of injury. Normal range of motion. Cervical back: Normal range of motion and neck supple. No rigidity. Right lower leg: No edema. Left lower leg: No edema. Lymphadenopathy: Cervical: No cervical adenopathy. Skin: General: Skin is warm and dry. Capillary Refill: Capillary refill takes less than 2 seconds. Coloration: Skin is not jaundiced or pale. Findings: No bruising, erythema, lesion or rash. Neurological: General: No focal deficit present. Mental Status: She is alert and oriented to person, place, and time. Cranial Nerves: No cranial nerve deficit. Sensory: No sensory deficit. Motor: No weakness. Coordination: Coordination normal. Gait: Gait normal. Psychiatric: Mood and Affect: Mood normal. Behavior: Behavior normal. Thought Content: Thought content normal. Judgment: Judgment normal. Assessment and Plan ASSESSMENT/PLAN: 1. Conjunctivitis of right eye, unspecified conjunctivitis type - ICD9: 372.30, ICD10: H10.9 - see medication orders - course and contagiousness issues discussed, including hand washing. - Instructed to call if high fever, development of periorbital redness or swelling, eye pain, visual changes, concerns or if symptoms persist. Diane Cardenas APRN.CNP documented in this encounter [facility] 05-16-2023 Note HNO ID: [id number] Author: Michael Lima MD Service: ? Author Type: Physician Type: Progress Notes Filed: 05/16/2023 1:23 PM Note Text: Credit Balance Specialist offered: Patient declines. Tobin is a 57 year old who presents for an annual gynecologic exam without complaints. Postmenopausal: Yes HRT use: Yes, estrace vaginal cream, still has some dryness and pain with insertion at time of intercourse Last Pap: normal 06/2019 HPV: negative History of abnormal pap: Yes - in college years, no colposcopy performed Last mammogram: 2022 normal OB History T0 L2 SAB0 IAB0 Ectopic0 Multiple0 Live Births0 Imaging Aide History LMP: 08/25/2016 (Approximate), Postmenopausal Age at Menarche: Age at First : Age at Menopause: Imaging Aide History Comments: Sexual Activity: Yes; Male Contraception: None PAST MEDICAL HISTORY Diagnosis Date Arthritis DEPRESSIVE DISORDER NEC 09/23/2005 Melasma 07/21/2012 Panic disorder without agoraphobia 09/23/2005 PAST SURGICAL HISTORY Procedure Laterality Date DELIVERY ONLY 1995, 1999 COLONOSCOPY FLX DX W/COLLJ SPEC WHEN PFRMD 05/03/2021 EGD W/O [facility] SPEC VARICIES INJ 2018 FAMILY HISTORY Problem Relation Age of Onset Colon Polyps Mother other (osteoarthritis [Other]) Mother Coronary Artery Disease Father Hypertension Father Lipids Father Lung Cancer Father NSC; smoker Lipids Sister Lipids Brother Lipids Paternal Grandmother Coronary Artery Disease Paternal Grandmother Lipids Paternal Grandfather Coronary Artery Disease Paternal Grandfather SOCIAL HISTORY Social History Tobacco Use Smoking status: Never Smokeless tobacco: Never Vaping Use Vaping Use: Never used Substance Use Topics Alcohol use: No Drug use: No REVIEW OF SYSTEMS Abdomen: No abdominal pain, nausea, vomiting, diarrhea, or constipation. No bloating, early satiety, indigestion, or increased flatulence. Bladder: No dysuria, gross hematuria, urinary frequency, urinary urgency, or incontinence Breast: No breast lumps, nipple d/c, overlying skin changes, redness or skin retraction Allergies and current medication updated:Yes EXAM: BP 100/62 Ht 5' 4 (1.63m) Wt 159 lb 6.4 oz (72.3kg) LMP 08/25/2016 BMI 27.35 kg/(m2). GENERAL: pleasant, female in no apparent distress HEENT: Normocephalic, atraumatic, mucus membranes moist, and no lesions NECK: full range of motion DERMATOLOGY: Normal, without lesions, non-icteric, and non-hirsute BREAST: soft, non-tender, symmetric, no dominant mass, normal nipple-areolar complex, no lymphadenopathy, and no nipple discharge CHEST: Normal inspiratory effort ABDOMEN: soft, non-tender, and no masses PELVIC: external genitalia atrophy, normal Bartholin's glands, urethra, Northome's glands, no vulvar lesions, no cervical lesions, good vaginal support, physiologic discharge present, normal appearing perineal body and perianal region, vaginal atrophy noted BIMANUAL: uterus normal size, shape and consistency, no adnexal masses, and non-tender RECTOVAGINAL: deferred. NEURO: exam grossly non-focal EXTREMITIES: normal ASSESSMENT/PLAN: 1) Health maintenance: Pap/HPV up to date. Mammogram ordered. Nutrition, exercise and routine health maintenance exams reviewed. Colon cancer screening: up to date with screening. Discussed using estrogen cream over vulva as well given vulvar atrophy. To call or message if no improvement with this. 2) Follow up one year or sooner as needed Michael Lima DO [facility] 05-16-2023 History of Presen t illness Narrative Credit Balance Specialist offered: Patient declines. Tobin is a 57 year old who presents for an annual gynecologic exam without complaints. Postmenopausal: Yes HRT use: Yes, estrace vaginal cream, still has some dryness and pain with insertion at time of intercourse Last Pap: normal 06/2019 HPV: negative History of abnormal pap: Yes - in college years, no colposcopy performed Last mammogram: 2022 normal OB History T0 L2 SAB0 IAB0 Ectopic0 Multiple0 Live Births0 Imaging Aide History LMP: 08/25/2016 (Approximate), Postmenopausal Age at Menarche: Age at First : Age at Menopause: Imaging Aide History Comments: Sexual Activity: Yes; Male Contraception: None PAST MEDICAL HISTORY Diagnosis Date Arthritis DEPRESSIVE DISORDER NEC 09/23/2005 Melasma 07/21/2012 Panic disorder without agoraphobia 09/23/2005 PAST SURGICAL HISTORY Procedure Laterality Date DELIVERY ONLY 1999 COLONOSCOPY FLX DX W/COLLJ SPEC WHEN PFRMD 05/03/2021 EGD W/O [facility] SPEC VARICIES INJ 2018 FAMILY HISTORY Problem Relation Age of Onset Colon Polyps Mother other (osteoarthritis [Other]) Mother Coronary Artery Disease Father Hypertension Father Lipids Father Lung Cancer Father NSC; smoker Lipids Sister Lipids Brother Lipids Paternal Grandmother Coronary Artery Disease Paternal Grandmother Lipids Paternal Grandfather Coronary Artery Disease Paternal Grandfather SOCIAL HISTORY Social History Tobacco Use Smoking status: Never Smokeless tobacco: Never Vaping Use Vaping Use: Never used Substance Use Topics Alcohol use: No Drug use: No REVIEW OF SYSTEMS Abdomen: No abdominal pain, nausea, vomiting, diarrhea, or constipation. No bloating, early satiety, indigestion, or increased flatulence. Bladder: No dysuria, gross hematuria, urinary frequency, urinary urgency, or incontinence Breast: No breast lumps, nipple d/c, overlying skin changes, redness or skin retraction Allergies and current medication updated:Yes EXAM: BP 100/62 Ht 5' 4 (1.63m) Wt 159 lb 6.4 oz (72.3kg) LMP 08/25/2016 BMI 27.35 kg/(m^2). GENERAL: pleasant, female in no apparent distress HEENT: Normocephalic, atraumatic, mucus membranes moist, and no lesions NECK: full range of motion DERMATOLOGY: Normal, without lesions, non-icteric, and non-hirsute BREAST: soft, non-tender, symmetric, no dominant mass, normal nipple-areolar complex, no lymphadenopathy, and no nipple discharge CHEST: Normal inspiratory effort ABDOMEN: soft, non-tender, and no masses PELVIC: external genitalia atrophy, normal Bartholin's glands, urethra, Northome's glands, no vulvar lesions, no cervical lesions, good vaginal support, physiologic discharge present, normal appearing perineal body and perianal region, vaginal atrophy noted BIMANUAL: uterus normal size, shape and consistency, no adnexal masses, and non-tender RECTOVAGINAL: deferred. NEURO: exam grossly non-focal EXTREMITIES: normal ASSESSMENT/PLAN: 1) Health maintenance: Pap/HPV up to date. Mammogram ordered. Nutrition, exercise and routine health maintenance exams reviewed. Colon cancer screening: up to date with screening. Discussed using estrogen cream over vulva as well given vulvar atrophy. To call or message if no improvement with this. 2) Follow up one year or sooner as needed Michael Lima, documented in this encounter [facility] 04-30-2023 Note HNO ID: [id number] Author: Mya Ferreira MD Service: ? Author Type: Physician Type: Progress Notes Filed: 05/21/2023 12:40 AM Note Text: This note was created using [employer]. Subjective Tobin Clarke is a 57 year old female. HISTORY Tobin Clarke is a 57 year old lady here for yearly exam and follow up appointment. Meloxicam still helping for aches and pains. Uses more routinely in winter. Will get flu shot at work. PAST MEDICAL HISTORY Diagnosis Date Arthritis DEPRESSIVE DISORDER NEC 09/23/2005 Melasma 07/21/2012 Panic disorder without agoraphobia 09/23/2005 Current Outpatient Medications Medication Sig cetirizine (ZYRTEC) 10 mg tablet Take 10 mg by mouth as needed. cyclobenzaprine (FLEXERIL) 10 mg tablet Take 1 tablet by mouth every 8 hours as needed for muscle spasm. meloxicam (MOBIC) 15 mg tablet Take 1 tablet by mouth once daily. estradiol (ESTRACE) 0.01 % (0.1 mg/gram) vaginal cream Apply pea-sized amount to perineum and 1 applicator vaginally Fri, Fri, Fri for atrophic vaginitis. Cholecalciferol, Vitamin D3, 2,000 unit ORAL Cap Take 1 tablet by mouth once daily. No current facility-administered medications for this visit. ALLERGIES No Known Allergies FAMILY HISTORY Problem Relation Age of Onset Colon Polyps Mother other (osteoarthritis [Other]) Mother Coronary Artery Disease Father Hypertension Father Lipids Father Lung Cancer Father NSC; smoker Lipids Sister Lipids Brother Lipids Paternal Grandmother Coronary Artery Disease Paternal Grandmother Lipids Paternal Grandfather Coronary Artery Disease Paternal Grandfather Social History Tobacco Use Smoking status: Never Smokeless tobacco: Never Vaping Use Vaping Use: Never used Substance Use Topics Alcohol use: No Drug use: No Review of Systems Objective BP 122/74 Pulse 80 Resp 16 Ht 160 cm (5' 3 ) Wt 72.1 kg (159 lb) LMP 08/25/2016 (Approximate) BMI 28.17 kg/m? Last 5 Encounter Wt Readings: Date: Wt: 04/30/2023 72.1 kg (159 lb) 06/12/2022 73 kg (161 lb) 03/06/2022 71.7 kg (158 lb) 03/04/2022 72.4 kg (159 lb 9.6 oz) 02/28/2022 73.5 kg (162 lb) No waist measurement recorded Estimated body mass index is 28.17 kg/m? as calculated from the following: Height as of this encounter: 160 cm (5' 3 ). Weight as of this encounter: 72.1 kg (159 lb). Last 5 Encounter BP Readings: Date: BP: 04/30/2023 122/74 06/12/2022 128/80 03/06/2022 108/70 03/04/2022 118/76 02/28/2022 124/86 Physical Exam Vitals reviewed. Constitutional: Appearance: She is well-developed. HENT: Head: Normocephalic and atraumatic. Right Ear: External ear normal. Left Ear: External ear normal. Nose: Nose normal. Eyes: Conjunctiva/sclera: Conjunctivae normal. Neck: Thyroid: No thyromegaly. Cardiovascular: Rate and Rhythm: Normal rate and regular rhythm. Pulses: Normal pulses. Heart sounds: Normal heart sounds. No murmur heard. No friction rub. No gallop. Pulmonary: Effort: Pulmonary effort is normal. Breath sounds: Normal breath sounds. Abdominal: General: Bowel sounds are normal. There is no distension. Palpations: Abdomen is soft. There is no mass. Tenderness: There is no abdominal tenderness. Musculoskeletal: General: No deformity. Normal range of motion. Right lower leg: No edema. Left lower leg: No edema. Lymphadenopathy: Cervical: No cervical adenopathy. Skin: General: Skin is warm and dry. Coloration: Skin is not jaundiced or pale. Findings: No rash. Neurological: General: No focal deficit present. Mental Status: She is alert and oriented to person, place, and time. Cranial Nerves: No cranial nerve deficit. Sensory: No sensory deficit. Motor: No abnormal muscle tone. Coordination: Coordination normal. Deep Tendon Reflexes: Reflexes normal. Psychiatric: Attention and Perception: Attention and perception normal. Mood and Affect: Mood and affect normal. Speech: Speech normal. Behavior: Behavior normal. Thought Content: Thought content normal. Cognition and Memory: Cognition and memory normal. Judgment: Judgment normal. Last year labs: Component Latest Ref Rng AND Units 12/10/2021 Protein, Total 6.3 - 8.0 g/dL 7.0 Albumin 3.9 - 4.9 g/dL 4.5 Calcium 8.5 - 10.2 mg/dL 9.7 Bilirubin, Total 0.2 - 1.3 mg/dL 0.6 Alkaline Phosphatase 34 - 123 U/L 79 AST 13 - 35 U/L 17 ALT 7 - 38 U/L 10 Glucose 74 - 99 mg/dL 108 (H) BUN 7 - 21 mg/dL 20 Creatinine 0.58 - 0.96 mg/dL 0.82 Sodium 136 - 144 mmol/L 140 Potassium 3.7 - 5.1 mmol/L 4.3 Chloride 97 - 105 mmol/L 102 CO2 22 - 30 mmol/L 28 Anion Gap 9 - 18 mmol/L 10 eGFR >=60 mL/min/1.73mA? 85 WBC 3.70 - 11.00 k/uL 5.68 RBC 3.90 - 5.20 m/uL 4.89 Hemoglobin 11.5 - 15.5 g/dL 14.8 Hematocrit 36.0 - 46.0 % 44.7 MCV 80.0 - 100.0 fL 91.4 MCH 26.0 - 34.0 pg 30.3 MCHC 30.5 - 36.0 g/dL 33.1 RDW-CV 11.5 - 15.0 % 12.1 Platelet Count 150 - 400 k/uL 245 (more content not included)... [facility] 04-30-2023 History of Presen t illness Narrative This note was created using [employer]. Subjective Tobin Clarke is a 57 year old female. HISTORY Tobin Clarke is a 57 year old lady here for yearly exam and follow up appointment. Meloxicam still helping for aches and pains. Uses more routinely in winter. Will get flu shot at work. PAST MEDICAL HISTORY Diagnosis Date Arthritis DEPRESSIVE DISORDER NEC 09/23/2005 Melasma 07/21/2012 Panic disorder without agoraphobia 09/23/2005 Current Outpatient Medications Medication Sig cetirizine (ZYRTEC) 10 mg tablet Take 10 mg by mouth as needed. cyclobenzaprine (FLEXERIL) 10 mg tablet Take 1 tablet by mouth every 8 hours as needed for muscle spasm. meloxicam (MOBIC) 15 mg tablet Take 1 tablet by mouth once daily. estradiol (ESTRACE) 0.01 % (0.1 mg/gram) vaginal cream Apply pea-sized amount to perineum and 1 applicator vaginally Mon, Wed, Fri for atrophic vaginitis. Cholecalciferol, Vitamin D3, 2,000 unit ORAL Cap Take 1 tablet by mouth once daily. No current facility-administered medications for this visit. ALLERGIES No Known Allergies FAMILY HISTORY Problem Relation Age of Onset Colon Polyps Mother other (osteoarthritis [Other]) Mother Coronary Artery Disease Father Hypertension Father Lipids Father Lung Cancer Father NSC; smoker Lipids Sister Lipids Brother Lipids Paternal Grandmother Coronary Artery Disease Paternal Grandmother Lipids Paternal Grandfather Coronary Artery Disease Paternal Grandfather Social History Tobacco Use Smoking status: Never Smokeless tobacco: Never Vaping Use Vaping Use: Never used Substance Use Topics Alcohol use: No Drug use: No Review of Systems Objective BP 122/74 Pulse 80 Resp 16 Ht 160 cm (5' 3 ) Wt 72.1 kg (159 lb) LMP 08/25/2016 (Approximate) BMI 28.17 kg/m Last 5 Encounter Wt Readings: Date: Wt: 04/30/2023 72.1 kg (159 lb) 06/12/2022 73 kg (161 lb) 03/06/2022 71.7 kg (158 lb) 03/04/2022 72.4 kg (159 lb 9.6 oz) 02/28/2022 73.5 kg (162 lb) No waist measurement recorded Estimated body mass index is 28.17 kg/m as calculated from the following: Height as of this encounter: 160 cm (5' 3 ). Weight as of this encounter: 72.1 kg (159 lb). Last 5 Encounter BP Readings: Date: BP: 04/30/2023 122/74 06/12/2022 128/80 03/06/2022 108/70 03/04/2022 118/76 02/28/2022 124/86 Physical Exam Vitals reviewed. Constitutional: Appearance: She is well-developed. HENT: Head: Normocephalic and atraumatic. Right Ear: External ear normal. Left Ear: External ear normal. Nose: Nose normal. Eyes: Conjunctiva/sclera: Conjunctivae normal. Neck: Thyroid: No thyromegaly. Cardiovascular: Rate and Rhythm: Normal rate and regular rhythm. Pulses: Normal pulses. Heart sounds: Normal heart sounds. No murmur heard. No friction rub. No gallop. Pulmonary: Effort: Pulmonary effort is normal. Breath sounds: Normal breath sounds. Abdominal: General: Bowel sounds are normal. There is no distension. Palpations: Abdomen is soft. There is no mass. Tenderness: There is no abdominal tenderness. Musculoskeletal: General: No deformity. Normal range of motion. Right lower leg: No edema. Left lower leg: No edema. Lymphadenopathy: Cervical: No cervical adenopathy. Skin: General: Skin is warm and dry. Coloration: Skin is not jaundiced or pale. Findings: No rash. Neurological: General: No focal deficit present. Mental Status: She is alert and oriented to person, place, and time. Cranial Nerves: No cranial nerve deficit. Sensory: No sensory deficit. Motor: No abnormal muscle tone. Coordination: Coordination normal. Deep Tendon Reflexes: Reflexes normal. Psychiatric: Attention and Perception: Attention and perception normal. Mood and Affect: Mood and affect normal. Speech: Speech normal. Behavior: Behavior normal. Thought Content: Thought content normal. Cognition and Memory: Cognition and memory normal. Judgment: Judgment normal. Last year labs: Component Latest Ref Rng & Units 12/10/2021 Protein, Total 6.3 - 8.0 g/dL 7.0 Albumin 3.9 - 4.9 g/dL 4.5 Calcium 8.5 - 10.2 mg/dL 9.7 Bilirubin, Total 0.2 - 1.3 mg/dL 0.6 Alkaline Phosphatase 34 - 123 U/L 79 AST 13 - 35 U/L 17 ALT 7 - 38 U/L 10 Glucose 74 - 99 mg/dL 108 (H) BUN 7 - 21 mg/dL 20 Creatinine 0.58 - 0.96 mg/dL 0.82 Sodium 136 - 144 mmol/L 140 Potassium 3.7 - 5.1 mmol/L 4.3 Chloride 97 - 105 mmol/L 102 CO2 22 - 30 mmol/L 28 Anion Gap 9 - 18 mmol/L 10 eGFR >=60 mL/min/1.73m 85 WBC 3.70 - 11.00 k/uL 5.68 RBC 3.90 - 5.20 m/uL 4.89 Hemoglobin 11.5 - 15.5 g/dL 14.8 Hematocrit 36.0 - 46.0 % 44.7 MCV 80.0 - 100.0 fL 91.4 MCH 26.0 - 34.0 pg 30.3 MCHC 30.5 - 36.0 g/dL 33.1 RDW-CV 11.5 - 15.0 % 12.1 Platelet Count 150 - 400 k/uL 245 MPV 9.0 - 12.7 fL 10.0 Absolute nRBC <0.01 k/uL <0.01 Cholesterol, Total <200 mg/dL 221 (H) Triglyceride <150 mg/dL 70 HDL Cholesterol >39 mg/dL 77 Non HDL Cholesterol <130 mg/dL 144 (H) Fasting Time hrs 12 VLDL Cholesterol <30 mg/dL 14 TC:HDL Ratio <5.10 2.87 LDL Cholesterol <100 mg/dL 130 (H) LDL:HDL Ratio <2.54 1.69 Hemoglobin A1C 4.3 - 5.6 % 5.5 Estimated Average Glucose mg/dL 111 Assessment and Plan Encounter Diagnosis ICD-10-CM 1. Routine medical exam Z00.00 COMP METABOLIC PANEL CBC HGB A1C LIPID PANEL BASIC 2. Chondromalacia of patella, unspecified laterality M22.40 meloxicam (MOBIC) 15 mg tablet 3. 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 Acute left-sided low back pain without sciatica M54.50 cyclobenzaprine (FLEXERIL) 10 mg tablet No recent flare ups. 5. Encounter for long-term current use of medication Z79.899 COMP METABOLIC PANEL CBC HGB A1C COMP METABOLIC PANEL CBC HGB A1C LIPID PANEL BASIC 6. Elevated glucose R73.09 COMP METABOLIC PANEL HGB A1C COMP METABOLIC PANEL HGB A1C 7. Screening, lipid Z13.220 LIPID PANEL BASIC Patient here for yearly exam and follow up. Above issues addressed with patient. Patient involved in shared decision making for management of medical issues. History and medications reviewed. Epic updated as needed Refills taken care of and meds adjusted as indicated after reviewed history, exam and labs. Health Maintenance reviewed. Updated record and/or ordered tests as recorded. Encouraged on efforts at healthy diet and regular exercise and adequate sleep. Mya Ferreiar MD documented in this encounter [facility] 04-29-2023 Miscellaneous Notes My chart message to pt. Comparison has been made. AMENDMENT: 04/28/2023 Cherri Ahumada M.D. Comparison is made to the previous mammogram(s) dated 08/29/2015 which are now available. No significant interval change is seen. Routine annual screening mammography is recommended. The patient does not require additional imaging. Amended BI-RADS: 2 Benign finding letter sent: Normal - Films Compared Radiology notes. They are aware of it and there just now waiting on the radiologist to finish it ----- Message from Mya Ferreira MD sent at 04/22/2023 9:34 AM EDT ----- Noted waiting to see about comparison to prior exams--prior done at [facility] so they should be able to get the images for comparison. Will await results of comparison documented in this encounter [facility] 04-28-2023 Miscellaneous Notes April 29, 2023 PID: [id number] Tobin Clarke [address] [place] [address] Dear Ms. Clarke, Your prior imaging studies have arrived and been compared to your current study. We are pleased to inform you that the results of your recent breast imaging exam on 04/17/2023 are normal. Your mammogram demonstrates that you have dense breast tissue, which could hide abnormalities. Dense breast tissue, in and of itself, is a relatively common condition. Therefore, this information is not provided to cause undue concern; rather, it is to raise your awareness and promote discussion with your health care provider regarding the presence of dense breast tissue in addition to other risk factors. Early detection of cancer is very important. We also understand recommendations regarding breast cancer screening are controversial. Please discuss with your primary care provider which strategy is best for you and whether a mammogram is right for you. Your imaging studies and report will be kept on file at [facility] as part of your permanent medical record and are available for your continuing care. Thank you for allowing us to help in meeting your health care needs. Sincerely, Dr. Ahumada Interpreting Radiologist [facility] (Normal Old Films compared) documented in this encounter [facility] 04-18-2023 Miscellaneous Notes April 18, 2023 PID: [id number] Tobin Clarke [address] [place] [address] Dear Ms. Clarke, Your breast imaging exam 04/17/2023 showed a possible finding that may require additional imaging studies for a complete evaluation. However, we recognize you have prior imaging studies at facilities other than [facility], and would like the opportunity to compare your recent imaging with those studies to evaluate for any change. At this time, we have requested your prior studies. Your mammogram demonstrates that you have dense breast tissue, which could hide abnormalities. Dense breast tissue, in and of itself, is a relatively common condition. Therefore, this information is not provided to cause undue concern; rather, it is to raise your awareness and promote discussion with your health care provider regarding the presence of dense breast tissue in addition to other risk factors. If/when your prior studies arrive, a final report will be sent to your healthcare provider and/or you. In addition, you will receive a new result letter and or phone call If you need additional imaging. If we do not receive prior studies within 30 days of your exam, you will receive a reminder letter and or phone call to schedule your diagnostic imaging. Your imaging studies and reports are kept on file at [facility] as part of your permanent medical record, and are available for your continuing care. If you have any questions or concerns, please call [phone]. Thank you for choosing [facility] for your imaging needs. Sincerely, Dr. Ahumada Interpreting Radiologist [facility] (Old Films) documented in this encounter [facility] 04-17-2023 Note HNO ID: [id number] Author: Sandee Warner Mammo Tech Service: ? Author Type: Supervisor Silvering Department Type: Progress Notes Filed: 04/17/2023 11:39 AM Note Text: Radiology Service Progress Note PATIENT NAME: Tobin Clarke DATE OF SERVICE: April 17, 2023 TIME: 11:17 AM PATIENT IDENTITY VERIFICATION COMPLETED USING TWO (2) IDENTIFIERS: Name and Date of confirmed by patient verbally. FALL SCREENING: Has the patient had 2 falls in the last year or 1 fall with injury or currently using an Ambulatory Assistive Device (Walker, Cane, Wheelchair, Crutches, etc.)? No PATIENT GENDER DATA: Female. status: : No status: NO. PATIENT RELEVANT IMPLANT DATA REVIEWED: Not Applicable RADIOLOGY DEPARTMENT: Mammography PERIPHERAL IV DATA: Not applicable SIGNED BY: Sherrill Beltran April 17, 2023 11:17 AM [facility] 04-17-2023 History of Presen t illness Narrative Radiology Service Progress Note PATIENT NAME: Tobin Clarke DATE OF SERVICE: April 17, 2023 TIME: 11:17 AM PATIENT IDENTITY VERIFICATION COMPLETED USING TWO (2) IDENTIFIERS: Name and Date of confirmed by patient verbally. FALL SCREENING: Has the patient had 2 falls in the last year or 1 fall with injury or currently using an Ambulatory Assistive Device (Walker, Cane, Wheelchair, Crutches, etc.)? No PATIENT GENDER DATA: Female. status: : No status: NO. PATIENT RELEVANT IMPLANT DATA REVIEWED: Not Applicable RADIOLOGY DEPARTMENT: Mammography PERIPHERAL IV DATA: Not applicable SIGNED BY: Sherrill Beltran April 17, 2023 11:17 AM documented in this encounter [facility] 04-17-2023 Miscellaneous Notes See phone encounter documented in this encounter [facility] 01-22-2023 Note Patient Outreach (IN [facility]) TOBIN CLARKE ([id number]) 1965 F Date Time Provider Department 01/22/23 MYA FERREIRA During your visit today, we recorded the following information about you: Allergies As of Date: 01/22/2023 (No Known Allergies) Date Reviewed: 06/12/2022 Reviewed by: Yary Bueno LPN - Fully Assessed Visit Diagnosis:Encounter for screening mammogram for breast cancer [Z12.31] Order(s):[facility] SCREENING [[id number]] Order #: [id number] FUTURE Prescriptions as of 01/27/2023 - cetirizine (ZYRTEC) 10 mg tablet Take 10 mg by mouth as needed. - cyclobenzaprine (FLEXERIL) 10 mg tablet Take 1 tablet by mouth every 8 hours as needed for muscle spasm. - meloxicam (MOBIC) 15 mg tablet Take 1 tablet by mouth once daily. - estradiol (ESTRACE) 0.01 % (0.1 mg/gram) vaginal cream Apply pea-sized amount to perineum and 1 applicator vaginally Mon, Wed, Fri for atrophic vaginitis. - Cholecalciferol, Vitamin D3, 2,000 unit ORAL Cap Take 1 tablet by mouth once daily. Problem List As Of Date 01/22/2023 Noted Resolved PANIC DISORDER WITHOUT AGORAPHOBIA [F41.0] 09/23/2005 DEPRESSIVE DISORDER NEC [F32.89] 09/23/2005 Melasma [L81.1] 07/21/2012 Encounter Status:Closed by CHAZ GARAY on 01/27/23 [facility] 06-12-2022 History of Presen t illness Narrative Images from the original note were not included. Subjective Patient came in with complaints of itching rash wrapped around her torso. States the only thing different was that she wore a new bra without washing it. Patient denies any new lotions detergents animals. Patient denies any other symptoms. The history is provided by the patient. No continuous washer operator was used. Rash Review of Systems Constitutional: Negative. Skin: Positive for itching and rash. Objective Physical Exam Constitutional: Appearance: Normal appearance. Pulmonary: Effort: Pulmonary effort is normal. Skin: Comments: Patient has raised erythematic areas consistent with hives in between the lines marked above. Neurological: Mental Status: She is alert. PAST MEDICAL HISTORY Diagnosis Date Arthritis DEPRESSIVE DISORDER NEC 09/23/2005 Melasma 07/21/2012 Panic disorder without agoraphobia 09/23/2005 PAST SURGICAL HISTORY Procedure Laterality Date ABDOMINAL SURGERY HX DELIVERY ONLY 1995, 1999 COLONOSCOPY FLX DX W/COLLJ SPEC WHEN PFRMD 05/03/2021 ALLERGIES Patient has no known allergies. MEDICATIONS cetirizine (ZYRTEC) 10 mg tablet Take 10 mg by mouth as needed. cyclobenzaprine (FLEXERIL) 10 mg tablet Take 1 tablet by mouth every 8 hours as needed for muscle spasm. meloxicam (MOBIC) 15 mg tablet Take 1 tablet by mouth once daily. estradiol (ESTRACE) 0.01 % (0.1 mg/gram) vaginal cream Apply pea-sized amount to perineum and 1 applicator vaginally Fri, Fri, Fri for atrophic vaginitis. Cholecalciferol, Vitamin D3, 2,000 unit ORAL Cap Take 1 tablet by mouth once daily. predniSONE (DELTASONE) 10 mg tablet Take 4 tabs daily for 3 days, then 2 tabs daily for 3 days, then 1 tab daily for 3 days with food. hydrOXYzine HCl (ATARAX) 25 mg tablet Take 1 tablet by mouth twice daily as needed for up to 3 days. FAMILY HISTORY Problem Relation Age of Onset Colon Polyps Mother other (osteoarthritis [Other]) Mother Coronary Artery Disease Father Hypertension Father Lipids Father Lung Cancer Father NSC; smoker Lipids Sister Lipids Brother Lipids Paternal Grandmother Coronary Artery Disease Paternal Grandmother Lipids Paternal Grandfather Coronary Artery Disease Paternal Grandfather Social History Tobacco Use Smoking status: Never Smokeless tobacco: Never Vaping Use Vaping Use: Never used Substance Use Topics Alcohol use: No Drug use: No ASSESSMENT/PLAN: 1. Hives - ICD9: 708.9, ICD10: L50.9 9-day prednisone taper and Atarax prescribed. Patient understands Atarax will make her drowsy. Patient will follow-up if signs and symptoms seem to be worse after treatment. Patient was okay with this care plan. Prudence Villagomez APRN.GENETIC SUPERVISOR documented in this encounter [facility] 03-18-2022 Miscellaneous Notes Offered appt with Dr Sanders. documented in this encounter [facility] 03-06-2022 History of Presen t illness Narrative This note was created using [employer]. Subjective Tobin Clarke is a 56 year old female. HISTORY Tobin Clarke is a 56 year old lady here for yearly exam and follow up appointment. Abscess is healing. Reviewed [facility] then Dr. Sanders. No surgery needed. Completed antibiotic. BP up a few times at home but not persistent. Doing well lately. Noted leg cramps the other day. Not a common issue. Discussed drinking enough water and getting fruits and veggies. Doing yoga and walking. No prior COVID. Kids got it but she did not. PAST MEDICAL HISTORY Diagnosis Date Arthritis DEPRESSIVE DISORDER NEC 09/23/2005 Melasma 07/21/2012 Panic disorder without agoraphobia 09/23/2005 Current Outpatient Medications Medication Sig meloxicam (MOBIC) 15 mg tablet Take 1 tablet by mouth once daily. cyclobenzaprine (FLEXERIL) 10 mg tablet Take 1 tablet by mouth every 8 hours as needed for muscle spasm. estradiol (ESTRACE) 0.01 % (0.1 mg/gram) vaginal cream Apply pea-sized amount to perineum and 1 applicator vaginally Mon, Wed, Fri for atrophic vaginitis. Cholecalciferol, Vitamin D3, 2,000 unit ORAL Cap Take 1 tablet by mouth once daily. No current facility-administered medications for this visit. ALLERGIES No Known Allergies FAMILY HISTORY Problem Relation Age of Onset Colon Polyps Mother other (osteoarthritis [Other]) Mother Coronary Artery Disease Father Hypertension Father Lipids Father Lung Cancer Father NSC; smoker Lipids Sister Lipids Brother Lipids Paternal Grandmother Coronary Artery Disease Paternal Grandmother Lipids Paternal Grandfather Coronary Artery Disease Paternal Grandfather Social History Tobacco Use Smoking status: Never Smoker Smokeless tobacco: Never Used Vaping Use Vaping Use: Never used Substance Use Topics Alcohol use: No Drug use: No Review of Systems Objective BP 108/70 Pulse 84 Ht 162 cm (5' 3.78 ) Wt 71.7 kg (158 lb) LMP 08/25/2016 (Approximate) SpO2 99% BMI 27.31 kg/m Physical Exam Vitals reviewed. Constitutional: Appearance: She is well-developed. HENT: Head: Normocephalic and atraumatic. Right Ear: External ear normal. Left Ear: External ear normal. Nose: Nose normal. Eyes: Conjunctiva/sclera: Conjunctivae normal. Neck: Thyroid: No thyromegaly. Cardiovascular: Rate and Rhythm: Normal rate and regular rhythm. Pulses: Normal pulses. Heart sounds: Normal heart sounds. No murmur heard. No friction rub. No gallop. Pulmonary: Effort: Pulmonary effort is normal. Breath sounds: Normal breath sounds. Abdominal: General: Bowel sounds are normal. There is no distension. Palpations: Abdomen is soft. There is no mass. Tenderness: There is no abdominal tenderness. Musculoskeletal: General: No deformity. Normal range of motion. Lymphadenopathy: Cervical: No cervical adenopathy. Skin: General: Skin is warm and dry. Coloration: Skin is not jaundiced or pale. Findings: No rash. Neurological: General: No focal deficit present. Mental Status: She is alert and oriented to person, place, and time. Cranial Nerves: No cranial nerve deficit. Sensory: No sensory deficit. Motor: No abnormal muscle tone. Coordination: Coordination normal. Deep Tendon Reflexes: Reflexes normal. Psychiatric: Mood and Affect: Mood normal. Behavior: Behavior normal. Thought Content: Thought content normal. Judgment: Judgment normal. Component Latest Ref Rng & Units 02/09/2021 12/10/2021 Protein, Total 6.3 - 8.0 g/dL 7.2 7.0 Albumin 3.9 - 4.9 g/dL 4.5 4.5 Calcium 8.5 - 10.2 mg/dL 9.5 9.7 Bilirubin, Total 0.2 - 1.3 mg/dL 0.6 0.6 Alkaline Phosphatase 34 - 123 U/L 81 79 AST 13 - 35 U/L 20 17 Glucose 74 - 99 mg/dL 112 (H) 108 (H) BUN 7 - 21 mg/dL 20 20 Creatinine 0.58 - 0.96 mg/dL 0.85 0.82 Sodium 136 - 144 mmol/L 140 140 Potassium 3.7 - 5.1 mmol/L 4.1 4.3 Chloride 97 - 105 mmol/L 102 102 CO2 22 - 30 mmol/L 28 28 Anion Gap 9 - 18 mmol/L 10 10 ALT 7 - 38 U/L 12 10 eGFR- >60 eGFR-All Other Races . >60 eGFR >=60 mL/min/1.73m 85 WBC 3.70 - 11.00 k/uL 5.77 5.68 RBC 3.90 - 5.20 m/uL 4.82 4.89 Hemoglobin 11.5 - 15.5 g/dL 14.6 14.8 Hematocrit 36.0 - 46.0 % 44.9 44.7 MCV 80.0 - 100.0 fL 93.2 91.4 MCH 26.0 - 34.0 pg 30.3 30.3 MCHC 30.5 - 36.0 g/dL 32.5 33.1 RDW-CV 11.5 - 15.0 % 12.7 12.1 Platelet Count 150 - 400 k/uL 241 245 MPV 9.0 - 12.7 fL 10.3 10.0 Absolute nRBC <0.01 k/uL <0.01 <0.01 Cholesterol, Total <200 mg/dL 225 (H) 221 (H) Triglyceride <150 mg/dL 80 70 HDL Cholesterol >39 mg/dL 75 77 LDL Cholesterol <100 mg/dL 134 (H) 130 (H) Non HDL Cholesterol <130 mg/dL 150 (H) 144 (H) Fasting Time hrs 12 12 VLDL Cholesterol <30 mg/dL 16 14 TC:HDL Ratio <5.10 3.00 2.87 LDL:HDL Ratio <2.54 1.79 1.69 Hemoglobin A1C 4.3 - 5.6 % 5.5 Estimated Average Glucose mg/dL 111 Assessment and Plan Encounter Diagnosis ICD-10-CM 1. Routine medical exam Z00.00 2. Acute left-sided low back pain without sciatica M54.50 cyclobenzaprine (FLEXERIL) 10 mg tablet 3. 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 Left wrist pain M25.532 meloxicam (MOBIC) 15 mg tablet Radial side-- 1st [facility] joint osteoarthrosis ASSESSMENT/PLAN: 1. Routine medical exam - ICD9: V70.0, ICD10: Z00.00 (primary diagnosis) - Counseled on healthy diet and regular exercise - Calcium intake with supplements or by diet of 1000 mg/day for under 50, 5300-7475 mg/day for 50+ - Follow up for annual exam in one year 2. Acute left-sided low back pain without sciatica - ICD9: 724.2, ICD10: M54.50 Takes med only when severe. 30 pills lasts the year - CYCLOBENZAPRINE 10 MG TABLET 3. Chondromalacia of patella, unspecified laterality - ICD9: 717.7, ICD10: M22.40 Continue present management. - MELOXICAM 15 MG TABLET 4. Left wrist pain - ICD9: 719.43, ICD10: M25.532 Continue present management. - MELOXICAM 15 MG TABLET Mya Ferreira MD documented in this encounter [facility] 03-04-2022 History of Presen t illness Narrative Tobin Clarke 1965 REFERRING PHYSICIAN: Prudence Villagomez APRN.* CHIEF COMPLAINT: Consult (right groin abscess) HPI: The patient is a 56 year old female right buttock abscess She states that it has been present for about a week. However, it seems to have ruptured. She notes less pain in the area since. She denies diabetes, she denies cigarettes use. She notes tenderness primarily because of rubbing against clothing. PAST MEDICAL HISTORY Diagnosis Date Arthritis DEPRESSIVE DISORDER NEC 09/23/2005 Melasma 07/21/2012 Panic disorder without agoraphobia 09/23/2005 PAST SURGICAL HISTORY Procedure Laterality Date ABDOMINAL SURGERY HX DELIVERY ONLY 1999 COLONOSCOPY FLX DX W/COLLJ SPEC WHEN PFRMD 05/03/2021 Current Outpatient Medications Medication Sig sulfamethoxazole-trimethoprim (BACTRIM DS) 800-160 mg per tablet Take 1 tablet by mouth twice daily for 5 days. meloxicam (MOBIC) 15 mg tablet Take 1 tablet by mouth once daily. cyclobenzaprine (FLEXERIL) 10 mg tablet Take 1 tablet by mouth every 8 hours as needed for muscle spasm. estradiol (ESTRACE) 0.01 % (0.1 mg/gram) vaginal cream Apply pea-sized amount to perineum and 1 applicator vaginally Mon, Wed, Fri for atrophic vaginitis. Cholecalciferol, Vitamin D3, 2,000 unit ORAL Cap Take 1 tablet by mouth once daily. ALLERGIES: Patient has no known allergies. PERSONAL HISTORY: Social History Tobacco Use Smoking status: Never Smoker Smokeless tobacco: Never Used Vaping Use Vaping Use: Never used Substance Use Topics Alcohol use: No Drug use: No FAMILY HISTORY Problem Relation Age of Onset Colon Polyps Mother other (osteoarthritis [Other]) Mother Coronary Artery Disease Father Hypertension Father Lipids Father Lung Cancer Father NSC; smoker Lipids Sister Lipids Brother Lipids Paternal Grandmother Coronary Artery Disease Paternal Grandmother Lipids Paternal Grandfather Coronary Artery Disease Paternal Grandfather The review of systems data was entered by the nurse and reviewed by va Nursing Notes: Mari Hong RN 03/04/2022 8:09 AM Signed REVIEW OF SYSTEMS: General: The patient denies fatigue, denies weight loss, denies weight gain, NOTES feeling hot, and denies feelings of cold. Eyes: The patient denies glaucoma, denies eye injury/surgery, wears glasses or contacts. Ear/Nose/Throat: The patient denies allergies, NOTES hayfever, denies ear infections, and denies bloody noses. Cardiovascular: The patient denies chest pain, denies heart disease, denies high blood pressure,denies cardiac stent, denies prior heart attack, denies irregular heart beat, denies high cholesterol, denies poor circulation, denies heart failure, other cardiac issues, denies claudication, denies cold feet, denies peripheral arterial stent. Respiratory: The patient denies tuberculosis, denies pneumonia, denies frequent cough, denies pulmonary embolism, denies shortness of breath, and denies coughing up blood. Gastrointestinal: The patient denies difficulty swallowing, NOTES acid reflux, denies ulcers, denies vomiting, denies jaundice/hepatitis, denies gallbladder problems, denies black or tarry stools, denies hemorrhoids, denies bleeding from rectum, denies diverticulitis, denies constipation, denies diarrhea, denies loss of stool control, and denies hernias. Kidney/Bladder: The patient NOTES kidney stones, denies urine infections, and denies bloody urine. Skin: The patient denies a history of skin cancer, denies bleeding/changing moles, and denies a history of skin rash. Neurologic: The patient denies a history of epilepsy/convulsions, denies headaches, denies head/spinal injuries, and denies stroke/TIA. Psychiatric: The patient denies psychiatric medications, denies depression, and denies voices, denies substance abuse. Endocrine: The patient denies thyroid disorders, denies diabetes, and denies hormonal problems. Hematologic: The patient denies a history of bruising, denies bleeding, and denies anemia, denies blood clots. Infections: The patient denies a history of measles and mumps, denies rheumatic fever, and denies sexually transmitted diseases. Musculoskeletal: The patient denies back pain/injury, denies back problems, denies sciatica, NOTES knee/foot trouble, denies arthritis, or denies gout. When was patient's last Mammogram screening? 01/2020 Last Colonoscopy: 06/2021 Mari Hong RN PHYSICAL EXAMINATION: General: The patient is 56 year old female, well nourished, well hydrated in no acute distress. The patient is oriented to time, place, and person. VITALS: Blood pressure 118/76, pulse 101, temperature 36.6 C (97.9 F), height 162.6 cm (5' 4 ), weight 72.4 kg (159 lb 9.6 oz), last menstrual period 08/25/2016, SpO2 97 %. Body mass index is 27.4 kg/m . Head: Normal cephalic, atraumatic Eyes: pupils are equally round, sclera are clear/anicteric Neck is supple with no tracheal deviation Respiratory: Normal respiratory excursion and pattern. Abdominal exam: Benign Back/buttocks: open wound that is central ulceration 1 cm x 1.5 cm with surrounding skin edges of erythema border of about 1 cm Extremities: no clubbing, cyanosis or edema. Neuro: non focal Psych: normal mood Assessment IMPRESSION: open wound of buttock PLAN: I have discussed the above with the patient. I have offered the following: continued observation versus debridement of the wound. The patient wishes to pursue the former. I have counseled patient to clean area with soap and water with a soft clothe as this will help debride the area. Keep a covering over the area that is breathable only to prevent staining of clothing and continued abrasion from clothing that is causing patient discomfort. Patient to follow up with me if she wishes to pursue debridement, etc. The patient acknowledges the above I have answered all questions to the patient s satisfaction and the patient has no further questions. I have confirmed and edited as necessary, the PFSH and ROS obtained by others. Consultation requested by Prudence Villagomez for an opinion regarding patient's wound. My final recommendations will be communicated back to the requesting physician by way of shared Medical record or letter to requesting physician via US mail. . Diagnoses: (T14.8XXA) Open wound Return to Clinic: The patient is encouraged to follow up in the clinic if worsening signs/symptoms. Medical Decision Making: Problems: Low: Acute, uncomplicated illness or injury Medical Decision Making Level: 2 - Straightforward Dina Sanders MD documented in this encounter [facility] 03-04-2022 Nurse Note REVIEW OF SYSTEMS: General: The patient denies fatigue, denies weight loss, denies weight gain, NOTES feeling hot, and denies feelings of cold. Eyes: The patient denies glaucoma, denies eye injury/surgery, wears glasses or contacts. Ear/Nose/Throat: The patient denies allergies, NOTES hayfever, denies ear infections, and denies bloody noses. Cardiovascular: The patient denies chest pain, denies heart disease, denies high blood pressure,denies cardiac stent, denies prior heart attack, denies irregular heart beat, denies high cholesterol, denies poor circulation, denies heart failure, other cardiac issues, denies claudication, denies cold feet, denies peripheral arterial stent. Respiratory: The patient denies tuberculosis, denies pneumonia, denies frequent cough, denies pulmonary embolism, denies shortness of breath, and denies coughing up blood. Gastrointestinal: The patient denies difficulty swallowing, NOTES acid reflux, denies ulcers, denies vomiting, denies jaundice/hepatitis, denies gallbladder problems, denies black or tarry stools, denies hemorrhoids, denies bleeding from rectum, denies diverticulitis, denies constipation, denies diarrhea, denies loss of stool control, and denies hernias. Kidney/Bladder: The patient NOTES kidney stones, denies urine infections, and denies bloody urine. Skin: The patient denies a history of skin cancer, denies bleeding/changing moles, and denies a history of skin rash. Neurologic: The patient denies a history of epilepsy/convulsions, denies headaches, denies head/spinal injuries, and denies stroke/TIA. Psychiatric: The patient denies psychiatric medications, denies depression, and denies voices, denies substance abuse. Endocrine: The patient denies thyroid disorders, denies diabetes, and denies hormonal problems. Hematologic: The patient denies a history of bruising, denies bleeding, and denies anemia, denies blood clots. Infections: The patient denies a history of measles and mumps, denies rheumatic fever, and denies sexually transmitted diseases. Musculoskeletal: The patient denies back pain/injury, denies back problems, denies sciatica, NOTES knee/foot trouble, denies arthritis, or denies gout. When was patient's last Mammogram screening? 01/2020 Last Colonoscopy: 06/2021 Mari Hong RN documented in this encounter [facility] 02-28-2022 History of Presen t illness Narrative Images from the original note were not included. Subjective Patient came in with complaints of 4 days of discomfort from a painful lump on her buttock. Patient said she has tried compresses. denies any other symptoms related to this at this time such as fever, chills, nausea. The history is provided by the patient. No continuous washer operator was used. Abscess Review of Systems Constitutional: Negative. Skin: Negative. Objective Physical Exam Constitutional: Appearance: Normal appearance. Pulmonary: Effort: Pulmonary effort is normal. Genitourinary: Comments: [place] sized firm lump noted in areas marked above. reddish purple in color. No drainage noted at this time. Neurological: Mental Status: She is alert. PAST MEDICAL HISTORY Diagnosis Date Arthritis DEPRESSIVE DISORDER NEC 09/23/2005 Melasma 07/21/2012 Panic disorder without agoraphobia 09/23/2005 PAST SURGICAL HISTORY Procedure Laterality Date ABDOMINAL SURGERY HX DELIVERY ONLY 1995, 1999 COLONOSCOPY FLX DX W/COLLJ SPEC WHEN PFRMD 05/03/2021 ALLERGIES Patient has no known allergies. MEDICATIONS meloxicam (MOBIC) 15 mg tablet Take 1 tablet by mouth once daily. cyclobenzaprine (FLEXERIL) 10 mg tablet Take 1 tablet by mouth every 8 hours as needed for muscle spasm. estradiol (ESTRACE) 0.01 % (0.1 mg/gram) vaginal cream Apply pea-sized amount to perineum and 1 applicator vaginally Fri, Fri, Fri for atrophic vaginitis. Cholecalciferol, Vitamin D3, 2,000 unit ORAL Cap Take 1 tablet by mouth once daily. sulfamethoxazole-trimethoprim (BACTRIM DS) 800-160 mg per tablet Take 1 tablet by mouth twice daily for 5 days. FAMILY HISTORY Problem Relation Age of Onset Colon Polyps Mother other (osteoarthritis [Other]) Mother Coronary Artery Disease Father Hypertension Father Lipids Father Lung Cancer Father NSC; smoker Lipids Sister Lipids Brother Lipids Paternal Grandmother Coronary Artery Disease Paternal Grandmother Lipids Paternal Grandfather Coronary Artery Disease Paternal Grandfather Social History Tobacco Use Smoking status: Never Smoker Smokeless tobacco: Never Used Vaping Use Vaping Use: Never used Substance Use Topics Alcohol use: No Drug use: No ASSESSMENT/PLAN: 1. Cutaneous abscess, unspecified site - ICD9: 682.9, ICD10: L02.91 - CONSULT TO GENERAL SURGERY Started on bactrim bid for 5 days. Follow up schedule Friday with general surgery for further evaluation and possible treatment management. patient was instructed about red flag symptoms such as fever nausea, worsening pain. If these happed she will proceed to the ER. Patient was okay with this care plan. Prudence Villagomez APRN.ROBIN documented in this encounter [facility] Diagnosis Cutaneous abscess, unspecified site- Primary [facility] Diagnosis Open wound Open wound(s) (multiple) of unspecified site(s), without mention of complication [facility] Diagnosis Routine medical exam- Primary Routine general medical examination at a health care facility Acute left-sided low back pain without sciatica Chondromalacia of patella, unspecified laterality Left wrist pain Pain in joint, forearm [facility] Diagnosis Hives- Primary Urticaria, unspecified [facility] Diagnosis Encounter for gynecological examination (general) (routine) without abnormal findings- Primary Dense breast tissue Breast cancer screening by mammogram [facility] Diagnosis Routine medical exam- Primary Routine general medical examination at a health care facility Chondromalacia of patella, unspecified laterality Left wrist pain Pain in joint, forearm Acute left-sided low back pain without sciatica Encounter for long-term current use of medication Elevated glucose Other abnormal glucose Screening, lipid Screening for lipoid disorders [facility] Diagnosis Conjunctivitis of right eye, unspecified conjunctivitis type- Primary [facility] Diagnosis Encounter for screening mammogram for breast cancer documented in this encounter [facility] for referral (narrative)* Diagnostic Procedure Only (Routine) - Pending Review Specialty Diagnoses / Procedures Referred By Ivette lee Referred To Contact [facility] Diagnoses Encounter for screening mammogram for breast cancer Procedures RANDAL SCREENING SCREENING MAMMOGRAPHY BI 2-VIEW BREAST INC Mya Mejia MD [address] [place] [address] [facility] [place] [address] Referral ID Status Reason Start Date Expiration Date Visits Requested Visits Authorized [id number] Pending Review Auto-Generat ed Referral 02/13/2022 03/15/2023 1 1 T [facility] for referral (narrative)* Diagnostic Procedure Only (Routine) - Pending Review Specialty Diagnoses / Procedures Referred By Contac t Referred To Contact [facility] Diagnoses Dense breast tissue Breast cancer screening by mammogram Procedures RANDAL SCREENING W WILL SCREENING DIGITAL BREAST TOMOSYNTHESIS BI SCREENING MAMMOGRAPHY BI 2-VIEW BREAST INC Michael Aguilera MD [address] [place] [address] [facility] [address] [place] [address] Referral ID Status Reason Start Date Expiration Date Visits Requested Visits Authorized [id number] Pending Review Auto-Generat ed Referral 05/16/2023 06/14/2024 1 1 [facility] for referral (narrative)* Diagnostic Procedure Only (Routine) - Closed Specialty Diagnoses / Procedures Referred By Ivette lee Referred To Contact [facility] Diagnoses Encounter for screening mammogram for breast cancer Procedures RANDAL SCREENING SCREENING MAMMOGRAPHY BI 2-[place] [address] [place] [address] [facility] [address] [place] [address] Referral ID Status Reason Start Date Expiration Date V isits Requested Visits Authorized [id number] Closed Auto-Generate d Referral 01/22/2023 02/21/2024 1 1 [facility] for visit Narrative* Diagnostic Procedure Only (Routine) - Closed Specialty Diagnoses / Procedures Referred By Ivette lee Referred To Contact [facility] Diagnoses Encounter for screening mammogram for breast cancer Procedures RANDAL SCREENING SCREENING MAMMOGRAPHY BI 2-VIEW BREAST INC Mya Mejia MD [address] [place] [address] [facility] [address] [place] [address] Referral ID Status Reason Start Date Expiration Date V isits Requested Visits Authorized [id number] Closed Auto-Generate d Referral 01/22/2023 02/21/2024 1 1 [facility] Advance Directives Documents on File Type Date Recorded 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 Advance Directive(s) 05/03/2021 8:49 AM Advance Directive(s) 04/30/2021 3:47 PM Documents on File Type Date Recorded 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 Advance Directive(s) 05/03/2021 8:49 AM Advance Directive(s) 04/30/2021 3:47 PM Reason for Referral Specialty Diagnoses / Procedures Referred By Ivette lee Referred To Contact General Surgery Diagnoses Cutaneous abscess, unspecified site Procedures CONSULT TO GENERAL SURGERY OFFICE/OUTPATIENT [facility] MDM 60-74 MINUTES Prudence Villagomez APRN.GENETIC SUPERVISOR [address] [place] [address] Referral ID Status Reason Start Date Expiration Date Visits Requested Visits Authorized [id number] Authorized PCP Requested Referral 02/28/2022 02/28/2023 1 1 Summary Purpose Family History No Family History Records Found Additional Source Comments Source Comments (unrecognize d section and content) In the event this informatio n is protected by the Federal Confidentiality of Alcohol and Drug Abuse Patient Records regulations: The Federal rules restrict any use of the information to criminally investigate or prosecute any alcohol or drug abuse patient.[facility] the event this information is protected by the Federal Confidentiality of Alcohol and Drug Abuse Patient Records regulations: The Federal rules restrict any use of the information to criminally investigate or prosecute any alcohol or drug abuse patient.[facility] the event this information is protected by the Federal Confidentiality of Alcohol and Drug Abuse Patient Records regulations: The Federal rules restrict any use of the information to criminally investigate or prosecute any alcohol or drug abuse patient.[facility] the event this information is protected by the Federal Confidentiality of Alcohol and Drug Abuse Patient Records regulations: The Federal rules restrict any use of the information to criminally investigate or prosecute any alcohol or drug abuse patient.[facility] the event this information is protected by the Federal Confidentiality of Alcohol and Drug Abuse Patient Records regulations: The Federal rules restrict any use of the information to criminally investigate or prosecute any alcohol or drug abuse patient.[facility] the event this information is protected by the Federal Confidentiality of Alcohol and Drug Abuse Patient Records regulations: The Federal rules restrict any use of the information to criminally investigate or prosecute any alcohol or drug abuse patient.[facility] the event this information is protected by the Federal Confidentiality of Alcohol and Drug Abuse Patient Records regulations: The Federal rules restrict any use of the information to criminally investigate or prosecute any alcohol or drug abuse patient.[facility] the event this information is protected by the Federal Confidentiality of Alcohol and Drug Abuse Patient Records regulations: The Federal rules restrict any use of the information to criminally investigate or prosecute any alcohol or drug abuse patient.[facility] the event this information is protected by the Federal Confidentiality of Alcohol and Drug Abuse Patient Records regulations: The Federal rules restrict any use of the information to criminally investigate or prosecute any alcohol or drug abuse patient.[facility] the event this information is protected by the Federal Confidentiality of Alcohol and Drug Abuse Patient Records regulations: The Federal rules restrict any use of the information to criminally investigate or prosecute any alcohol or drug abuse patient.[facility] the event this information is protected by the Federal Confidentiality of Alcohol and Drug Abuse Patient Records regulations: The Federal rules restrict any use of the information to criminally investigate or prosecute any alcohol or drug abuse patient.[facility] the event this information is protected by the Federal Confidentiality of Alcohol and Drug Abuse Patient Records regulations: The Federal rules restrict any use of the information to criminally investigate or prosecute any alcohol or drug abuse patient.[facility] the event this information is protected by the Federal Confidentiality of Alcohol and Drug Abuse Patient Records regulations: The Federal rules restrict any use of the information to criminally investigate or prosecute any alcohol or drug abuse patient.[facility] Care Teams (unrecognized sec tion and content) Fundraising Specialist Relationship Specialty Start Date End Date Mya Ferreira MD [address] [place] [address] PCP - General 06/11/02 Fundraising Specialist Relationship Specialty Start Date End Date Mya Ferreira MD [address] [place] [address] PCP - General 06/11/02 Fundraising Specialist Relationship Specialty Start Date End Date Mya Ferreira MD [address] [place] [address] PCP - General 06/11/02 Fundraising Specialist Relationship Specialty Start Date End Date Mya Ferreira MD [address] [place] [address] PCP - General 06/11/02 Fundraising Specialist Relationship Specialty Start Date End Date Mya Ferreira MD [address] [place] [id number] PCP - General 06/11/02 Fundraising Specialist Relationship Specialty Start Date End Date Mya Ferreira MD [address] [place] [address] PCP - General 06/11/02 Fundraising Specialist Relationship Specialty Start Date End Date Mya Ferreira MD [address] [place] [address] PCP - General 06/11/02 Fundraising Specialist Relationship Specialty Start Date End Date Mya Frereira MD [address] [place] [id number] PCP - General 06/11/02 Fundraising Specialist Relationship Specialty Start Date End Date Mya Ferreira MD [address] [place] [address], [place] [address] PCP - General 06/11/02 Fundraising Specialist Relationship Specialty Start Date End Date Mya Ferreira MD [address] [place], [place] [address] PCP - General 06/11/02 Reason for Visit (unrecogniz ed section and content) Reason Comments Consult right groin abscess Specialty Diagnoses / Procedures Referred By Contac t Referred To Contact General Surgery Diagnoses Cutaneous abscess, unspecified site Procedures CONSULT TO GENERAL SURGERY OFFICE/OUTPATIENT [facility] 60-74 MINUTES Prudence Villagomez APRN.GENETIC SUPERVISOR [address] [place] [address] Referral ID Status Reason Start Date Expiration Date V isits Requested Visits Authorized [id number] Closed PCP Requested Referral 02/28/2022 02/28/2023 1 1 Reason Comments Yearly Exam Reason Comments Rash Started yesterday, s preading Reason Comments Results Reason Comments Well Woman Reason Comments Eye Problem R eye x 2 days redne ss and swelling INFORMATION SOURCE (unrecogn ized section and content) FOR RECORDS PERTAINING TO PATIENTS WHO ARE OR HAVE BEEN ENROLLED IN A CHEMICAL DEPENDENCY/SUBSTANCEABUSE PROGRAM, SOME INFORMATION MAY BE OMITTED. This clinical summary was aggregated from multiple sources. Caution should be exercised in using it in the provision of clinical care. This summary normalizes information from multiple sources, and as a consequence, information in this document may materially change the coding, format and clinical context of patient data. In addition, data may be omitted in some cases. CLINICAL DECISIONS SHOULD BE BASED ON THE PRIMARY CLINICAL RECORDS. [facility]. provides no warranty or guarantee of the accuracy or completeness of information in this document.
[2023-09-01 22:06] VITALS: BP 118/75; PULSE 84; RESP 18; O2SAT 98
[2023-09-01 22:06] LABS: Anion Gap 7 (5-15); BUN 22 mg/dL (7-18); BUN/Creat Ratio 27.7 RATIO (10-20); Calcium,Total 9.3 mg/dL (8.5-10.1); Chloride 106 mmol/L (98-107); EST Glomerular Filtration Rate 79 mL/min (>60); Est Glom Filt Rate - Afr Amer 96 mL/min (>60); Estimated Creatinine Clearance 76.63 ml/min; Glucose 133 mg/dL (74-106); Potassium 4.1 mmol/L (3.5-5.1); Sodium Level 140 mmol/L (136-145); Troponin-I HS (w/2H Reflex) 7 pg/mL (3.0-54.0)
[2023-09-01 23:00] VITALS: BP 131/73; PULSE 82; RESP 13; O2SAT 98
[2023-09-01 23:24] LABS: D-Dimer Quantitative (DVT/PE) 0.35 FEU/ug/m (0.27-0.49)
[2023-09-01 23:30] LABS: Reflex Troponin-HS? (from REC) Y
[2023-09-01 23:55] LABS: Troponin-I HS 11 pg/mL (3.0-54.0)
[2023-09-02] VITALS: BP 118/69; PULSE 72; RESP 12; O2SAT 100
--- NOTE | 2023-09-02 00:33 | HP.PCM.HOS_ITS ---
HPI - General General Date of Admission: 09/02/23 Date of Service: 09/02/23 Chief Complaint: Chest Pain. HPI Narrative TOBIN CLARKE, is a 57 F with a past medical history of being overweight; with BMI of 27.4 present on admission, history of renal calculi (2019), osteoarthritis; on Meloxicam, history of negative NST (~2018) resulting in diagnosis of GERD; with esophageal spasm and a positive family history of coronary artery disease in her father who underwent PPM/AICD placement for severe systolic CHF with left ventricular ejection fraction of 16% who presents to [facility] ER complaining of chest pain. Mrs. Clarke reports her symptoms began a few hours prior to admission with chest pain that began at rest and was substernal, pressure-like, ~7 out of 10 and radiating into her right shoulder down to her elbow with nothing seeming to make the pain better or worse. She denies a history of similar previous episodes. She also denies recent illness, recent trauma, recent overexertion or recent medication changes. She denies associated fever, chills, nausea or vomiting but she does admit to a feeling of foreboding that something is seriously wrong with her heart. She admits to drinking Pepsi occasionally and only had 4 to 6 ounces earlier in the morning but none later in the afternoon and she denies other significant caffeine or stimulant intake. 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 In the ER she had a witnessed 30 second burst of nonsustained ventricular tachycardia with patient feeling a fluttering sensation in her chest but she denies coinciding chest pain with it at that time. She was then admitted to the CDU under observation status for ongoing c are for stay that is expected to be less than 48 hours. [facility] Medical History no medical history Home Medications meloxicam 15 mg tablet 15 mg PO DAILY 09/02/23 [History Last Taken Unknown] Allergy/AdvReac Type Severity Reaction Status Date / Time No Known Allergies Allergy Verified 09/01/23 21:10 Surgical History no surgical history Social History Smoking Status: Never smoker ROS ROS Narrative Review of systems: General: Patient denies fevers or chills. HENT: Denies headache, denies stuffy nose, denies sore throat EYES: Denies changes in vision Resp: Denies cough, denies shortness of breath Cardiac: Patient admits to chest pain with brief palpitations. GI: Denies abdominal pain, denies changes in bowel, she also denies nausea or vomiting. : Denies changes in urination Extremity: Denies swelling Musculoskeletal: Negative for myalgias or arthralgias. Neuro: Denies any numbness/tingling Heme: Denies easy bleeding or bruising. Skin: Denies rashes. Psychiatric: No complaints voiced in uncontrolled depression or anxiety. Endocrine: No polyuria, polydipsia or polyphagia The rest of the 14 point ROS was negative except for positives in HPI. Vital Signs Vital Signs Vital Signs: 09/01/23 21:08 09/01/23 21:22 09/01/23 21:32 Temperature 97 F L Temperature Source Temporal Pulse Rate 96 Respiratory Rate 15 Respiratory Effort Normal Blood Pressure 161/88 H Blood Pressure Mean 112 Pulse Ox 97 97 Oxygen Delivery Method Room Air Room Air 09/01/23 22:06 09/01/23 23:00 Temperature Temperature Source Pulse Rate 84 82 Respiratory Rate 18 13 Respiratory Effort Blood Pressure 118/75 131/73 H Blood Pressure Mean 89 92 Pulse Ox 98 98 Oxygen Delivery Method Room Air Room Air Weight Weight: 159 lb 13.362 oz Body Mass Index (BMI) 27.4 Physical Exam Const alert, oriented x3, no apparent distress, average body habitus, healthy appearing and well nourished General Appearance: cooperative HEENT normocephalic, head/scalp atraumatic, hearing grossly normal bilaterally, moist oral mucous membranes and oropharynx normal Eyes PERRL and EOMs intact bilaterally Neck no lymphadenopathy and supple Resp normal respiratory effort, no retractions, no use of accessory muscles and clear to auscultation bilaterally Cardio regular rate and regular rhythm GI normal to inspection, nondistended, normoactive bowel sounds, soft to palpation, non-tender and non-distended Extremity normal to inspection and full ROM Skin Skin Narrative: Patient has no evidence of rash. Neuro oriented x3, CN's II-XII intact bilaterally, moves all extremities and no focal motor deficits Sensorium / Orientation: awake, alert, oriented to person, oriented to place and oriented to time Speech: speech normal Motor Exam: strength 5/5 throughout Psych affect normal Results Medical Records Data Attestation: I reviewed the patient's medical records Lab / Micro Data Attestation: I reviewed the patient's lab results. 09/02/23 03:03 09/02/23 03:03 Labs: Laboratory Results - last 24 hr 09/01/23 21:17: WBC 7.3, RBC 4.97, Hgb 14.7, Hct 45.0, MCV 90.5, MCH 29.6, MCHC 32.7, RDW Std Deviation 40.1, RDW Coeff of Messi 12.1, Plt Count 227, MPV 9.8, Immature Gran % (Auto) 0.300, Neut % (Auto) 78.5 H, Lymph % (Auto) 15.7 L, [place] % (Auto) 4.2, Eos % (Auto) 1.0, Baso % (Auto) 0.3, Absolute Neuts (auto) 5.8, Absolute Lymphs (auto) 1.15, Nucleated RBC % 0, D-Dimer Quant (PE/DVT) 0.35, Sodium 140, Potassium 4.1, Chloride 106, Carbon Dioxide 27.0, Anion Gap 7, BUN 22 H, Creatinine 0.80, Estim Creat Clear Calc 76.63, Est GFR (MDRD) Af Amer 96, Est GFR (MDRD) Non-Af 79, BUN/Creatinine Ratio 27.7 H, Glucose 133 H, Calcium 9.3, Troponin I High Sens 7 09/01/23 23:24: Troponin I High Sens 11 Imagaing Radiology Impression Chest X-Ray 09/01/23 21:30 IMPRESSION: Normal x-ray examination of the chest. Electronically Signed: Madison Chen MD at 22:05 EST , Assessment & Plan Assessment/Plan (1) Chest pain: QUALIFIERS: Chest pain type: unspecified Qualified Code(s): R07.9 - Chest pain, unspecified (2) Non-sustained ventricular tachycardia: PLAN: Plan 1. Chest pain - Admit to CDU under observation status. Serialize troponin. Check echocardiogram to evaluate left ventricular ejection fraction. Check Lexiscan nuclear stress test in a.m. to evaluate for underlying ischemia. Continue enteric-coated aspirin and as needed sublingual nitroglycerin. 2. Nonsustained ventricular tachycardia (witnessed in the ER ) lasting approximately 30 seconds complicating #1 - Place on security monitor overnight. ER physician spoke to Dr. Romano who was agreed to see patient in the a.m. on rounds with help appreciated in advance. 3. History of GERD; with esophageal spasm diagnosed after negative nuclear stress test (~2018) - Give Protonix 40 mg PO daily in case this problem is recurring since it is currently untreated with patient on Meloxicam. 4. Overweight; with BMI of 27.4 this admission - Weight loss will be recommended. Check TSH. 5. Osteoarthritis - Restart Meloxicam once chest pain workup is completed. 6. DVT prophylaxis - Lovenox 40 mg subcu daily. Total time: Approximately 45 minutes. Charges/Coding Visit Charges OBSV E&M: 08786 Observ/hosp same date L1
--- NOTE | 2023-09-02 00:42 | EX.ED.DYSGE1 ---
HPI History of Present Illness Chief Complaint: Chest Pain Informant: patient and spouse/S.O. Narrative Narrative: Patient is a 57-year-old female with no significant past medical history. She states that today she had a bout of chest discomfort described as more of a burning or pressure sensation that resolved after Pepcid. However later in the night symptoms returned and seem to be more intense than previous and she felt there was radiation into her right arm. She states symptoms lasted 10 to 20 minutes and then began to improve. She denies any history of hypertension hyperlipidemia diabetes or cardiovascular disease. She denies any history of recent travel or surgery. She denies any illicit drug use. She states that she does have family history of heart disease however and with her symptoms she was concerned it could be cardiac and comes in for evaluation [facility] Medical History no medical history Home Medications meloxicam 15 mg tablet 15 mg PO DAILY 09/02/23 [History Last Taken Unknown] Allergy/AdvReac Type Severity Reaction Status Date / Time No Known Allergies Allergy Verified 09/01/23 21:10 Social History Smoking Status: Never smoker ROS ROS ED Constitutional Constitutional ED: Denies chills or fever(s) ENT ENT ED: Denies sore throat Cardiovascular Cardiovascular: Reports chest pain Respiratory/Chest Respiratory/Chest: Denies cough or dyspnea Gastrointestinal Gastrointestinal: Denies abdominal pain, diarrhea, nausea or vomiting Genitourinary Genitourinary ED: Denies dysuria Musculoskeletal Musculoskeletal: Denies myalgias Integumentary Denies rash Neurologic Neurologic: Denies headache(s) Hematologic/Lymphatic Hematologic/Lymphatic: Denies easy bleeding or easy bruising EXAM Physical Exam Const Vital Signs: 09/01/23 21:08 09/01/23 21:22 09/01/23 21:32 Temperature 97 F L Temperature Source Temporal Pulse Rate 96 Respiratory Rate 15 Respiratory Effort Normal Blood Pressure 161/88 H Blood Pressure Mean 112 Pulse Ox 97 97 Oxygen Delivery Method Room Air Room Air 09/01/23 22:06 09/01/23 23:00 09/02/23 00:00 Temperature Temperature Source Pulse Rate 84 82 72 Respiratory Rate 18 13 12 Respiratory Effort Blood Pressure 118/75 131/73 H 118/69 Blood Pressure Mean 89 92 85 Pulse Ox 98 98 100 Oxygen Delivery Method Room Air Room Air Room Air 09/02/23 00:00 Temperature Temperature Source Pulse Rate 72 Respiratory Rate 12 Respiratory Effort Blood Pressure 118/69 Blood Pressure Mean 85 Pulse Ox 100 Oxygen Delivery Method Positive well nourished and well developed General Appearance ED: well developed; Negative for pallor HEENT Reports moist mucous membranes Eyes PERRL and EOMs intact bilaterally General Eye ED: Negative for scleral icterus Neck supple and no JVD Chest Wall palpation of chest normal Chest Narrative: No bony deformity or crepitance Resp normal respiratory effort and clear to auscultation bilaterally Cardio regular rate and regular rhythm Rate: other Other Details: Heart is regular rate and rhythm without murmurs rubs or gallops Radial and carotid pulses are equal and symmetric No carotid bruit or JVD noted GI normal to inspection, nondistended, normoactive bowel sounds, non-tender, non-distended and no masses Auscultation: normoactive bowel sounds Palpation: soft Extremity normal to inspection Extremity Narrative: No asymmetric edema no pitting edema negative Homans' sign bilaterally Neuro oriented x3, CN's II-XII intact bilaterally and no sensory deficits noted Sensorium / Orientation: alert Motor Exam: strength 5/5 throughout Psych mental status grossly normal Skin no rashes or lesions noted General Skin Exam: Negative for jaundice or pallor MDM MDM MDM Narrative Medical decision making narrative: Patient presented to the ER hypertensive but otherwise with stable vitals. She is low risk for acute coronary syndrome with concern for this a basic cardiac workup was obtained. As her symptoms are atypical of acute coronary syndrome a chest x-ray was ordered to rule out pneumothorax pneumonia pleural effusion D-dimer was added to rule out dissection or pulmonary embolus. Labs revealed no clinically significant findings with a initial troponin of 7 with delta increasing by 4-11 which is not clinically significant. D-dimer is also negative going against PE or dissection. X-ray reveals no acute lung pathology. Patient did report a short bout of palpitations while in the ER telemetry review shows that she was in normal sinus rhythm and then went into a 15 to 30 seconds episode of a wide-complex tachycardia most consistent with ventricular tachycardia. Secondary to this case was discussed with cardiology on-call who recommends that patient has never had a thing like this she be admitted for continued observation with potential echocardiogram in the morning. Therefore the case was discussed with medicine on-call and they agreed except the patient for further care. History & Record Review Discussion w/independent historian: Patient and Significant other Lab Data Attestation: I reviewed the patient's lab results. Labs: Laboratory Results - last 24 hr 09/01/23 09/01/23 21:17 23:24 WBC 7.3 RBC 4.97 Hgb 14.7 Hct 45.0 MCV 90.5 MCH 29.6 MCHC 32.7 RDW Std Deviation 40.1 RDW Coeff of Messi 12.1 Plt Count 227 MPV 9.8 Immature Gran % (Auto) 0.300 Neut % (Auto) 78.5 H Lymph % (Auto) 15.7 L [place] % (Auto) 4.2 Eos % (Auto) 1.0 Baso % (Auto) 0.3 Absolute Neuts (auto) 5.8 Absolute Lymphs (auto) 1.15 Nucleated RBC % 0 D-Dimer Quant (PE/DVT) 0.35 Sodium 140 Potassium 4.1 Chloride 106 Carbon Dioxide 27.0 Anion Gap 7 BUN 22 H Creatinine 0.80 Estim Creat Clear Calc 76.63 Est GFR (MDRD) Af Amer 96 Est GFR (MDRD) Non-Af 79 BUN/Creatinine Ratio 27.7 H Glucose 133 H Calcium 9.3 Troponin I High Sens 7 11 Radiography Diagnostic Testing: Clinical Impression(s) from Imaging Studies Chest X-Ray 09/01/23 21:30 IMPRESSION: Normal x-ray examination of the chest. Electronically Signed: Madison Chen MD at 22:05 EST Reading Location ID and State: [address] [place] [address] , Service support , Chest x-ray as interpreted by the emergency medicine physician reveals no acute infiltrate pneumothorax or pleural effusion Management Discussion w/another healthcare provider: Hospitalist and [employer]er Discharge Plan Dx/Rx/DC Orders Clinical Impression: Non-sustained ventricular tachycardia, Nonspecific chest pain Disposition Disposition: Acute Care Hospital [facility] [place] Discharge Date/Time: 09/02/23 02:01 Capacity Legal Distribution Agent Reflex Medical hold order details:: IF a medical hold is selected below, a suggested order for a MEDICAL HOLD will reflex upon signing the document. Next of kin: [place] law dictates a PRIORITY LIST for identifying legal decision-maker/legal next of kin in the following order (LNOK): 1st: The patient?s legal guardian, if any 2nd: The patient's spouse (if status is questionable, consult Risk Management) 3rd: The patient?s adult child(sera) (majority, if multiple children) 4th: The patient?s parents 5th: The patient?s adult siblings (majority, if multiple children siblings)
--- NOTE | 2023-09-02 00:51 | ECHOD_ITS ---
Reason For Study: chest pain Procedure This was a 2D Doppler, Color Flow transthoracic echocardiogram. Exam performed portable in patient room. Left Ventricle Normal LV size. Left ventricular systolic function is lower limits of normal. The estimated ejection fraction is 50 %. Normal diastololic function. There are regional wall motion abnormalities as specified. Mid-Lateral : Hypokinetic. Mid-Anterior : Hypokinetic. Anterior Perryman : Hypokinetic. Lateral Perryman : Hypokinetic. Right Ventricle Normal RV size. Normal systolic function. Atria Normal left atrium. Normal right atrium. Mitral Valve Mild diffuse mitral valve thickening. Mild mitral valve prolapse. Mild (1+) mitral valve insufficiency. Tricuspid Valve Normal tricuspid valve. Trivial tricuspid valve insufficiency. Unable to estimate RV systolic pressure due to insufficient tricuspid regurgitant envelope. Aortic Valve Trisinus/trileaflet aortic valve. Pulmonic Valve The pulmonic valve is not well visualized. Great Vessels Normal aortic root. Pericardium/Pleural No pericardial effusion. MMode/2D Measurements & Calculations LVIDd: 4.2 cm IVSd: 0.92 cm Ao root diam: 3.2 cm LVIDs: 2.7 cm LVPWd: 0.94 cm RVDd: 2.8 cm FS: 35.3 % LAV(MOD-bp): 30.9 ml LVAd ap4: 25.9 cm2 LVAd ap2: 23.8 cm2 LAV(MOD-bp) Indexed: 17.4 ml/m2 LVLd ap4: 7.4 cm LVLd ap2: 7.8 cm LAV(MOD-sp2): 31.6 ml EDV(MOD-sp4): 75.7 ml EDV(MOD-sp2): 62.6 ml LAV(MOD-sp4): 28.2 ml EDV(sp4-el): 77.0 ml EDV(sp2-el): 61.9 ml LVAs ap4: 17.2 cm2 LVAs ap2: 16.7 cm2 LVLs ap4: 6.5 cm LVLs ap2: 7.0 cm ESV(MOD-sp4): 38.4 ml ESV(MOD-sp2): 33.4 ml ESV(sp4-el): 38.6 ml ESV(sp2-el): 33.8 ml EF(MOD-sp4): 49.3 % EF(MOD-sp2): 46.7 % EF(sp4-el): 49.9 % SV(MOD-sp4): 37.3 ml SV(MOD-sp2): 29.2 ml SV(sp4-el): 38.4 ml LA dimension(2D): 3.2 cm LA A4 area: 13.5 cm2 RA A4 area: 12.0 cm2 TAPSE: 2.6 cm Time Measurements MV dec time: 0.32 sec Doppler Measurements & Calculations MV E max seun: 59.4 cm/sec Lat Peak E' Seun: 11.5 cm/sec Med Peak E' Seun: 7.8 cm/sec MV A max seun: 76.9 cm/sec E/E' lat: 5.2 E/E' med: 7.6 MV E/A: 0.77 MV dec slope: 187.2 cm/sec2 Ao V2 max: 135.1 cm/sec LV V1 max: 81.7 cm/sec Ao max P.3 mmHg LV V1 max P.7 mmHg PA V2 max: 80.6 cm/sec ECHO/Echo Complete Interpretation Summary The estimated ejection fraction is 50 %. There are regional wall motion abnormalities as specified. Mild diffuse mitral valve thickening. Mild mitral valve prolapse. Mild (1+) mitral valve insufficiency. Ordering Physician: Sushil Conti Referring Physician: Elsa Ferreira M.D. Performed By: Maira Beckham RDCS
--- OUTSIDE RECORDS SUMMARY | 2023-09-02 00:51 | XMS RPT_ITS | CCD ---
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; Translations: [Encounter for long-term [...] 11:59-0400 Body temperature 97.81 [degF] Diane Cardenas APRN.DIESEL POWERPLANT MECHANIC HELPER Work Phone: [facility] 06-12-2023 11:59-0400 Body weight 71.67 kg Diane Cardenas FISH HATCHERY WORKER.DIESEL POWERPLANT MECHANIC HELPER Work Phone: [facility] 06-12-2023 11:59-0400 Diastolic blood pressure 70 mm[Hg] Diane Cardenas FISH HATCHERY WORKER.DIESEL POWERPLANT MECHANIC HELPER Work Phone: [facility] 06-12-2023 11:59-0400 Heart rate 81 /min Diane Cardenas FISH HATCHERY WORKER.DIESEL POWERPLANT MECHANIC HELPER Work Phone: [facility] 06-12-2023 11:59-0400 Respiratory rate 16 /min Diane Cardenas FISH HATCHERY WORKER.DIESEL POWERPLANT MECHANIC HELPER Work Phone: [facility] 06-12-2023 11:59-0400 SaO2% (BldA) [Mass fraction] 99 % Diane Cardenas FISH HATCHERY WORKER.DIESEL POWERPLANT MECHANIC HELPER Work Phone: [facility] 06-12-2023 11:59-0400 Systolic blood pressure 100 mm[Hg] Diane Cardenas FISH HATCHERY WORKER.DIESEL POWERPLANT MECHANIC HELPER Work Phone: [facility] 05-16-2023 10:26-0400 Body height 162.6 cm Michael Lima MD Work Phone: [facility] 05-16-2023 10:26-0400 Body weight 72.3 kg Michael Lima MD Work Phone: [facility] 05-16-2023 10:26-0400 Diastolic blood pressure 62 mm[Hg] Michael Lima MD Work Phone: [facility] 05-16-2023 10:26-0400 Systolic blood pressure 100 mm[Hg] Michael Lima MD Work Phone: [facility] 04-30-2023 08:06-0400 Body height 160 cm Mya Ferreira MD Work Phone: [facility] 04-30-2023 08:06-0400 Body weight 72.12 kg Mya Ferreira MD Work Phone: [facility] 04-30-2023 08:06-0400 Diastolic blood pressure 74 mm[Hg] Mya Ferreira MD Work Phone: [facility] 04-30-2023 08:06-0400 Heart rate 80 /min Mya Ferreira MD Work Phone: [facility] 04-30-2023 08:06-0400 Respiratory rate 16 /min Mya Ferreira MD Work Phone: [facility] 04-30-2023 08:06-0400 Systolic blood pressure 122 mm[Hg] Mya Ferreira MD Work Phone: [facility] 06-12-2022 10:27-0400 Body temperature 97.81 [degF] Prudence Villagomez APRN.DIESEL POWERPLANT MECHANIC HELPER Work Phone: [facility] 06-12-2022 10:27-0400 Body weight 73.03 kg Prudence Villagomez APRN.DIESEL POWERPLANT MECHANIC HELPER Work Phone: [facility] 06-12-2022 10:27-0400 Diastolic blood pressure 80 mm[Hg] Prudence Villagomez APRN.DIESEL POWERPLANT MECHANIC HELPER Work Phone: [facility] 06-12-2022 10:27-0400 Heart rate 84 /min Prudence Villagomez APRN.DIESEL POWERPLANT MECHANIC HELPER Work Phone: [facility] 06-12-2022 10:27-0400 Respiratory rate 16 /min Prudence Villagomez APRN.DIESEL POWERPLANT MECHANIC HELPER Work Phone: [facility] 06-12-2022 10:27-0400 SaO2% (BldA) [Mass fraction] 97 % Prudence Villagomez APRN.DIESEL POWERPLANT MECHANIC HELPER Work Phone: [facility] 06-12-2022 10:27-0400 Systolic blood pressure 128 mm[Hg] Prudence Villagomez APRN.DIESEL POWERPLANT MECHANIC HELPER Work Phone: [facility] 03-06-2022 13:03-0400 Body height 162 cm Mya Ferreira MD Work Phone: [facility] 03-06-2022 13:03-0400 Body weight 71.67 kg Mya Ferreira MD Work Phone: [facility] 03-06-2022 13:03-0400 Diastolic blood pressure 70 mm[Hg] Mya Ferreira MD Work Phone: [facility] 03-06-2022 13:03-0400 Heart rate 84 /min Mya Ferreira MD Work Phone: [facility] 03-06-2022 13:03-0400 SaO2% (BldA) [Mass fraction] 99 % Mya Ferreira MD Work Phone: [facility] 03-06-2022 13:03-0400 Systolic blood pressure 108 mm[Hg] Mya Ferreira MD Work Phone: [facility] 03-04-2022 08:04-0400 Body height 162.6 cm Dina Sanders MD Work Phone: [facility] 03-04-2022 08:04-0400 Body temperature 97.9 [degF] Dina Sanders MD Work Phone: [facility] 03-04-2022 08:04-0400 Body weight 72.39 kg Dina Sanders MD Work Phone: [facility] 03-04-2022 08:04-0400 Diastolic blood pressure 76 mm[Hg] Dina Sanders MD Work Phone: [facility] 03-04-2022 08:04-0400 Heart rate 101 /min Dina Sanders MD Work Phone: [facility] 03-04-2022 08:04-0400 SaO2% (BldA) [Mass fraction] 97 % Dina Sanders MD Work Phone: [facility] 03-04-2022 08:04-0400 Systolic blood pressure 118 mm[Hg] Dina Sanders MD Work Phone: [facility] 02-28-2022 14:19-0400 Body temperature 97.5 [degF] Prudence Villagomez APRN.DIESEL POWERPLANT MECHANIC HELPER Work Phone: [facility] 02-28-2022 14:19-0400 Body weight 73.48 kg Prudence Villagomez APRN.DIESEL POWERPLANT MECHANIC HELPER Work Phone: [facility] 02-28-2022 14:19-0400 Diastolic blood pressure 86 mm[Hg] Prudence Villagomez APRN.DIESEL POWERPLANT MECHANIC HELPER Work Phone: [facility] 02-28-2022 14:19-0400 Heart rate 88 /min Prudence Villagoemz APRN.DIESEL POWERPLANT MECHANIC HELPER Work Phone: [facility] 02-28-2022 14:19-0400 Respiratory rate 20 /min Prudence Villagomez APRN.DIESEL POWERPLANT MECHANIC HELPER Work Phone: [facility] 02-28-2022 14:19-0400 SaO2% (BldA) [Mass fraction] 96 % Prudence Villagomez APRN.DIESEL POWERPLANT MECHANIC HELPER Work Phone: [facility] 02-28-2022 14:19-0400 Systolic blood pressure 124 mm[Hg] Prudence Villagomez APRN.DIESEL POWERPLANT MECHANIC HELPER Work Phone: [facility] Encounters Encounter Date Encounter Type Care Provider Facility Start: 06-12-2023 End: 06-13-2023 ambulatory MYA FERREIRA Facility:[facility] Start: 06-12-2023 End: 06-12-2023 Patient encounter procedure Diane Greenmery RODRIGUEZ.DIESEL POWERPLANT MECHANIC HELPER Work Phone: [facility] Procedures Date Procedure Procedure Detail Performing Clinician Start: 04-17-2023 End: 04-17-2023 Mammography Bulk Order Provider Start: 12-10-2021 Lipid 1996 panel - S mark or Plasma Mya Ferreira MD Work Phone: Start: 05-03-2021 Colonoscopy Mya charles MD Work Phone: Start: 08-04-2019 Mammography yMa charles MD Work Phone: Plan of Treatment Date Care Activity Detail Author Start: 02-07-2027 HPV TESTING HPV TESTING [facility] Start: 12-10-2026 Lipid 1996 panel - Serum or Plasma Lipid Screening [facility] Start: 12-10-2026 LIPID SCREEN LIPID SCREEN [facility] Start: 06-12-2026 Diabetes Screening Diabetes Screening [facility] Start: 05-03-2026 Colonoscopy COLONOSCOPY [facility] Start: 05-03-2026 COLORECTAL CANCER SCREENING COLORECTAL CANCER SCREENING [facility] Start: 03-25-2026 Urine microalbumin profile [facility] Start: 02-07-2025 PAP TESTING PAP TESTING [facility] Start: 12-10-2024 DIABETES SCREEN DIABETES SCREEN [facility] Start: 12-10-2024 Diabetes Screening Diabetes Screening [facility] Start: 04-30-2024 End: 06-30-2024 CBC panel - Blood by Automated count CBC Lab Routine Encounter for long-term current use of medication Routine medical exam Expected: 04/30/2024 (Approximate), Expires: 06/30/2024 [facility] Work Phone: Immunizations Immunization Date Immunization Notes Care Provider Maegan dawson 06-19-2022 Seasonal, trivalent, recombinant, injectable influenza vaccine, preservative free Mammography Coordinator [facility] Work Phone: 06-19-2022 influenza virus vaccine, unspecified formulation Mya Ferreira MD Work Phone: [facility] 05-01-2021 influenza, injectabl e, quadrivalent, preservative free Mya Ferreira MD Work Phone: [facility] Work Phone: 10-07-2020 COVID-19 vaccine, fu ll dose (MODERNA) Mya Ferreira MD Work Phone: [facility] Work Phone: 09-08-2020 COVID-19 vaccine, fu ll dose (MODERNA) Mya Ferreira MD Work Phone: [facility] Work Phone: 04-20-2020 influenza, seasonal, injectable Mya Ferreira MD Work Phone: [facility] Work Phone: 04-20-2020 Seasonal, quadrivalent, recombinant, injectable influenza vaccine, preservative free Mya Ferreira MD Work Phone: [facility] Work Phone: 06-18-2019 zoster vaccine recombinant Mya Ferreira MD Work Phone: [facility] Work Phone: 04-08-2019 Seasonal, quadrivalent, recombinant, injectable influenza vaccine, preservative free Mya Ferreira MD Work Phone: [facility] Work Phone: 04-08-2019 zoster vaccine recombinant Mya Ferreira MD Work Phone: [facility] Work Phone: 01-25-2019 hepatitis A vaccine, adult dosage Mya Ferreira MD Work Phone: [facility] Work Phone: 01-25-2019 hepatitis A vaccine, unspecified formulation Mya Ferreira MD Work Phone: [facility] Work Phone: 04-30-2018 influenza, injectabl e, quadrivalent, preservative free Mya Ferreira MD Work Phone: [facility] Work Phone: 04-30-2018 influenza, seasonal, injectable Mya Ferreira MD Work Phone: [facility] Work Phone: 12-18-2017 hepatitis A vaccine, adult dosage Mya Ferreira MD Work Phone: [facility] Work Phone: 12-18-2017 hepatitis A vaccine, unspecified formulation Mya Ferreira MD Work Phone: [facility] Work Phone: 03-24-2017 influenza, injectabl e, quadrivalent, contains preservative Mya Ferreira MD Work Phone: [facility] 03-24-2017 influenza, seasonal, injectable, preservative free Mya Ferreira MD Work Phone: [facility] Work Phone: 03-25-2016 influenza, injectabl e, quadrivalent, preservative free Mya Ferreira MD Work Phone: [facility] Work Phone: 03-25-2016 influenza, seasonal, injectable Mya Ferreira MD Work Phone: [facility] 03-25-2016 tetanus toxoid, reduced diphtheria toxoid, and acellular pertussis vaccine, adsorbed Mya Ferreira MD Work Phone: [facility] Work Phone: 04-13-2015 influenza, seasonal, injectable Mya Ferreira MD Work Phone: [facility] Work Phone: 05-28-2014 hepatitis B vaccine, adult dosage Mya Ferreira MD Work Phone: [facility] 05-28-2014 hepatitis B vaccine, unspecified formulation Mya Ferreira MD Work Phone: [facility] 05-12-2014 influenza, seasonal, injectable Mya Ferreira MD Work Phone: [facility] 12-30-2013 hepatitis B vaccine, adult dosage Mya Ferreira MD Work Phone: [facility] 11-23-2013 hepatitis B immune globulin Mya Ferreira MD Work Phone: [facility] 11-23-2013 hepatitis B vaccine, adult dosage Michael Lima MD Work Phone: [facility] Work Phone: 05-29-2013 influenza virus vaccine, unspecified formulation Mya Ferreira MD Work Phone: [facility] 06-01-2012 influenza virus vaccine, unspecified formulation Mya Ferreira MD Work Phone: [facility] 05-18-2009 influenza virus vaccine, live, attenuated, for intranasal use Mya Ferreira MD Work Phone: [facility] Work Phone: 06-22-2008 influenza virus vaccine, unspecified formulation Mya Ferreira MD Work Phone: [facility] Work Phone: 06-16-2007 influenza virus vaccine, unspecified formulation Mya Ferreira MD Work Phone: [facility] Work Phone: 06-17-2006 influenza virus vaccine, unspecified formulation Mya Ferreira MD Work Phone: [facility] Work Phone: 04-15-2006 tetanus toxoid, reduced diphtheria toxoid, and acellular pertussis vaccine, adsorbed Mya Ferreira MD Work Phone: [facility] Work Phone: Payers Date Payer Category Payer Medicaid [id number] 2021 Unknown ANTHEM BLUE CARD PPO OOS [id number] 2021-Present [phone] [address] [place] [address] PPO [id number] 2021 Unknown [id number] 2017 Unknown MMO MMO [employer] PLUS [id number] 2017-Present [phone] [address] [place] [address] PPO [id number] 2017 Unknown [id number] Social History Date Type Detail Facility Start: 07-28-2019 End: 06-12-2022 Tobacco smoking status NHIS Never smoked tobacco [facility] Start: 05-11-2021 End: 06-12-2022 Alcohol intake Current non-drinker of alcohol (finding) [facility] Start: 02-21-2020 End: 08-06-2020 History SDOH Alcohol Frequency 2 [facility] Start: 02-21-2020 End: 08-06-2020 History SDOH Alcohol Std Drinks 1 [facility] Start: 02-21-2020 History SDOH Social Connections Get Together 3 [facility] Start: 02-21-2020 History SDOH Financial 5 [facility] Start: 02-20-2020 Education 17 [facility] Start: 1965 Sex Assigned At Female [facility] Start: 02-18-2022 End: 06-12-2022 Exposure to SARS-CoV-2 (event) Not sure [facility] Work Phone: Start: 07-28-2019 End: 06-12-2022 Tobacco use and exposure Smokeless tobacco non-user [facility] Start: 02-20-2020 End: 09-13-2022 History of Social function [facility] Start: 02-20-2020 End: 09-13-2022 Social connection and isolation panel [facility] Do you belong to any clubs or organizations such as mormon groups, unions, fraternal or athletic groups, or school groups? Yes [facility] Are you now , , , , never or living with a partner? [facility] How often to you hav e a drink containing alcohol? Monthly or less [facility] How many standard dr inks containing alcohol do you have on a typical day? 1 or 2 [facility] How often do you hav e 6 or more drinks on 1 occasion? Never [facility] How hard is it for y ou to pay for the very basics like food, housing, medical care, and heating Not hard at all [facility] Do you feel stress - tense, restless, nervous, or anxious, or unable to sleep at night because your mind is troubled all the time - these days [OSQ] Only a little [facility] (I/We) worried wheth er (my/our) food would run out before (I/we) got money to buy more. Never true [facility] In the past 12 month s, was there a time when you were not able to pay the mortgage or rent on time? No [facility] Start: 02-20-2020 Gender identity Identifies as female gender (finding) [facility] Start: 02-20-2020 Sexual orientation Heterosexual (finding) [facility] How often to you hav e a drink containing alcohol? 2-4 times a month [facility] Clinical Notes 02-28-2022 to 06-12-2023 Addendum Note - Diane Cardenas APRN.DIESEL POWERPLANT MECHANIC HELPER - 06/12/2023 12:48 PM Diane Ayala APRN.ROBIN - 06/12/2023 12:14 PM EDTMichael Lima MD - 05/16/2023 10:22 AM EDT Note Date & Type Note Facility 06-12-2023 Note HNO ID: [id number] Author: Diane Cardenas APRN.ROBIN Service: ? Author [...] history is provided by the patient. No crib pad maker was used. Eye Problem This is a [...] W/COLLJ SPEC WHEN PFRMD 05/03/2021 EGD W/O [facility] SPEC VARICIES INJ 2018 ALLERGIES Patient has [...] is no r (more content not included)... [facility] 06-12-2023 Miscellaneous Notes Addended by: DIANE CARDENAS on: 06/12/2023 12:48 PM Modules accepted: Orders documented in this encounter [facility] 06-12-2023 History of Presen t illness Narrative This note was created using [employer]. Subjective Tobin Clarke is a 57 year [...] history is provided by the patient. No crib pad maker was used. Eye Problem This is a [...] Diane Cardenas APRN.CNP documented in this encounter [facility] 05-16-2023 Note HNO ID: [id number] Author: Michael Lima MD Service: ? Author Type: Physician Type: Progress Notes Filed: 05/16/2023 1:23 PM Note Text: Pre Press Manager offered: Patient declines. Tobin is a 57 [...] L2 SAB0 IAB0 Ectopic0 Multiple0 Live Births0 Harbormaster History LMP: 08/25/2016 (Approximate), Postmenopausal Age at Menarche: Age at First : Age at Menopause: Harbormaster History Comments: Sexual Activity: Yes; Male Contraception: None PAST MEDICAL HISTORY Diagnosis Date Arthritis DEPRESSIVE DISORDER NEC 09/23/2005 Melasma 07/21/2012 Panic disorder without agoraphobia 09/23/2005 PAST SURGICAL HISTORY Procedure Laterality Date DELIVERY ONLY 1995, 1999 COLONOSCOPY FLX DX W/COLLJ SPEC WHEN PFRMD 05/03/2021 EGD W/O [facility] SPEC VARICIES INJ 2018 FAMILY HISTORY Problem [...] external genitalia atrophy, normal Bartholin's glands, urethra, [place]'s glands, no vulvar lesions, no cervical lesions, [...] or sooner as needed Michael Lima DO [facility] 05-16-2023 History of Presen t illness Narrative Pre Press Manager offered: Patient declines. Tobin is a 57 [...] L2 SAB0 IAB0 Ectopic0 Multiple0 Live Births0 Harbormaster History LMP: 08/25/2016 (Approximate), Postmenopausal Age at Menarche: Age at First : Age at Menopause: Harbormaster History Comments: Sexual Activity: Yes; Male Contraception: None PAST MEDICAL HISTORY Diagnosis Date Arthritis DEPRESSIVE DISORDER NEC 09/23/2005 Melasma 07/21/2012 Panic disorder without agoraphobia 09/23/2005 PAST SURGICAL HISTORY Procedure Laterality Date DELIVERY ONLY 1999 COLONOSCOPY FLX DX W/COLLJ SPEC WHEN PFRMD 05/03/2021 EGD W/O [facility] SPEC VARICIES INJ 2018 FAMILY HISTORY Problem [...] external genitalia atrophy, normal Bartholin's glands, urethra, [place]'s glands, no vulvar lesions, no cervical lesions, [...] needed Michael Lima, documented in this encounter [facility] 04-30-2023 Note HNO ID: [id number] Author: Mya Ferreira MD Service: ? Author Type: Physician Type: Progress Notes Filed: 05/21/2023 12:40 AM Note Text: This note was created using [employer]. Subjective Tobin Clarke is a 57 year [...] 400 k/uL 245 (more content not included)... [facility] 04-30-2023 History of Presen t illness Narrative This note was created using [employer]. Subjective Tobin Clarke is a 57 year [...] and regular exercise and adequate sleep. Mya Ferreira MD documented in this encounter [facility] 04-29-2023 Miscellaneous Notes My chart message [...] about comparison to prior exams--prior done at [facility] so they should be able to get the images for comparison. Will await results of comparison documented in this encounter [facility] 04-28-2023 Miscellaneous Notes April 29, 2023 PID: [id number] Tobin Clarke [address] [place] [address] Dear Ms. Clarke, Your prior imaging studies [...] report will be kept on file at [facility] as part of your permanent medical record and are available for your continuing care. Thank you for allowing us to help in meeting your health care needs. Sincerely, Dr. Ahumada Interpreting Radiologist [facility] ([employer] compared) documented in this encounter [facility] 04-18-2023 Miscellaneous Notes April 18, 2023 PID: [id number] Tobin Clarke [address] [place] [address] Dear Ms. Clarke, Your breast imaging exam 04/17/2023 showed a possible finding that may require additional imaging studies for a complete evaluation. However, we recognize you have prior imaging studies at facilities other than [facility], and would like the opportunity to [...] and reports are kept on file at [facility] as part of your permanent medical record, and are available for your continuing care. If you have any questions or concerns, please call [phone]. Thank you for choosing [facility] for your imaging needs. Sincerely, Dr. Ahumada Interpreting Radiologist [facility] ([employer]) documented in this encounter [facility] 04-17-2023 Note HNO ID: [id number] Author: Sandee Warner Mammo Tech Service: ? Author Type: Account Consultant Type: Progress Notes Filed: 04/17/2023 11:39 AM [...] Sherrill Beltran April 17, 2023 11:17 AM [facility] 04-17-2023 History of Presen t illness [...] 2023 11:17 AM documented in this encounter [facility] 04-17-2023 Miscellaneous Notes See phone encounter documented in this encounter [facility] 01-22-2023 Note Patient Outreach (IN TMMN) TOBIN CLARKE ([id number]) 1965 F Date Time Provider Department 01/22/23 MYA FERREIRA During your visit today, we recorded the following information about you: Allergies As of Date: 01/22/2023 (No Known Allergies) Date Reviewed: 06/12/2022 Reviewed by: Yary Bueno LPN - Fully Assessed Visit Diagnosis:Encounter for screening mammogram for breast cancer [Z12.31] Order(s):[facility] SCREENING [[id number]] Order #: [id number] FUTURE Prescriptions as of 01/27/2023 - cetirizine [...] Encounter Status:Closed by CHAZ GARAY on 01/27/23 [facility] 06-12-2022 History of Presen t illness [...] history is provided by the patient. No crib pad maker was used. Rash Review of Systems Constitutional: [...] okay with this care plan. Prudence Villagomez APRN.DIESEL POWERPLANT MECHANIC HELPER documented in this encounter [facility] 03-18-2022 Miscellaneous Notes Offered appt with Dr Sanders. documented in this encounter [facility] 03-06-2022 History of Presen t illness Narrative This note was created using [employer]. Subjective Tobin Clarke is a 56 year [...] diet of 1000 mg/day for under 50, 1383-4247 mg/day for 50+ - Follow up for [...] Mya Ferreira MD documented in this encounter [facility] 03-04-2022 History of Presen t illness [...] entered by the nurse and reviewed by nc Nursing Notes: Mari Hong RN 03/04/2022 8:09 [...] Dina Sanders MD documented in this encounter [facility] 03-04-2022 Nurse Note REVIEW OF SYSTEMS: [...] Mari Hong RN documented in this encounter [facility] 02-28-2022 History of Presen t illness Narrative Images from the original note were not included. Subjective Patient came in with complaints of 4 days of discomfort from a painful lump on her buttock. Patient said she has tried compresses. denies any other symptoms related to this at this time such as fever, chills, nausea. The history is provided by the patient. No crib pad maker was used. Abscess Review of Systems Constitutional: Negative. Skin: Negative. Objective Physical Exam Constitutional: Appearance: Normal appearance. Pulmonary: Effort: Pulmonary effort is normal. Genitourinary: Comments: [place] sized firm lump noted in areas marked [...] Prudence Villagomez APRN.ROBIN documented in this encounter [facility] Cutaneous abscess, unspecified site- Primary [facility] Diagnosis Open wound Open wound(s) (multiple) of unspecified site(s), without mention of complication [facility] Diagnosis Routine medical exam- Primary Routine general medical examination at a health care facility Acute left-sided low back pain without sciatica Chondromalacia of patella, unspecified laterality Left wrist pain Pain in joint, forearm [facility] Diagnosis Hives- Primary Urticaria, unspecified [facility] Diagnosis Encounter for gynecological examination (general) (routine) without abnormal findings- Primary Dense breast tissue Breast cancer screening by mammogram [facility] Diagnosis Routine medical exam- Primary Routine general medical examination at a health care facility Chondromalacia of patella, unspecified laterality Left wrist pain Pain in joint, forearm Acute left-sided low back pain without sciatica Encounter for long-term current use of medication Elevated glucose Other abnormal glucose Screening, lipid Screening for lipoid disorders [facility] Diagnosis Conjunctivitis of right eye, unspecified conjunctivitis type- Primary [facility] Diagnosis Encounter for screening mammogram for breast cancer documented in this encounter [facility] for referral (narrative)* Diagnostic Procedure Only (Routine) - Pending Review Specialty Diagnoses / Procedures Referred By Ivette lee Referred To Contact [facility] Diagnoses Encounter for screening mammogram for breast cancer Procedures RANDAL SCREENING SCREENING MAMMOGRAPHY BI 2-VIEW BREAST INC Mya Mejia MD [address] [place] [address] Br Imaging [facility] [place] [address] Referral ID Status Reason Start Date Expiration Date Visits Requested Visits Authorized [id number] Pending Review Auto-Generat ed Referral 02/13/2022 03/15/2023 1 1 T [facility] for referral (narrative)* Diagnostic Procedure Only (Routine) - Pending Review Specialty Diagnoses / Procedures Referred By Contac t Referred To Contact [facility] Diagnoses Dense breast tissue Breast cancer screening by mammogram Procedures RANDAL SCREENING W WILL SCREENING DIGITAL BREAST TOMOSYNTHESIS BI SCREENING MAMMOGRAPHY BI 2-VIEW BREAST INC Michael Aguilera MD [address] [place] [address] Br Imaging [address] [place] [address] Referral ID Status Reason Start Date Expiration Date Visits Requested Visits Authorized [id number] Pending Review Auto-Generat ed Referral 05/16/2023 06/14/2024 1 1 [facility] for referral (narrative)* Diagnostic Procedure Only (Routine) - Closed Specialty Diagnoses / Procedures Referred By Ivette lee Referred To Contact [facility] Diagnoses Encounter for screening mammogram for breast cancer Procedures RANDAL SCREENING SCREENING MAMMOGRAPHY [place] 2[place] [address] [place] [address] Br Imaging [address] [place] [address] Referral ID Status Reason Start Date Expiration Date V isits Requested Visits Authorized [id number] Closed Auto-Generate d Referral 01/22/2023 02/21/2024 1 1 [facility] for visit Narrative* Diagnostic Procedure Only (Routine) - Closed Specialty Diagnoses / Procedures Referred By Ivette lee Referred To Contact [facility] Diagnoses Encounter for screening mammogram for breast cancer Procedures RANDAL SCREENING SCREENING MAMMOGRAPHY BI 2-VIEW BREAST INC Mya Mejia MD [address] [place] [address] Br Imaging [address] [place] [address] Referral ID Status Reason Start Date Expiration Date V isits Requested Visits Authorized [id number] Closed Auto-Generate d Referral 01/22/2023 02/21/2024 1 1 [facility] Advance Directives Documents on File Type Date Recorded 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 Advance Directive(s) 05/03/2021 8:49 AM Advance Directive(s) 04/30/2021 3:47 PM Documents on File Type Date Recorded 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 Advance Directive(s) 05/03/2021 8:49 AM Advance Directive(s) 04/30/2021 3:47 PM Reason for Referral Specialty Diagnoses / Procedures Referred By Ivette lee Referred To Contact General Surgery Diagnoses Cutaneous abscess, unspecified site Procedures CONSULT TO GENERAL SURGERY OFFICE/OUTPATIENT [facility] MDM 60-74 MINUTES Prudence Villagomez APRN.DIESEL POWERPLANT MECHANIC HELPER [address] [place] [address] Referral ID Status Reason Start Date Expiration Date Visits Requested Visits Authorized [id number] Authorized PCP Requested Referral 02/28/2022 02/28/2023 1 [...] or prosecute any alcohol or drug abuse patient.[facility] the event this information is protected by the Federal Confidentiality of Alcohol and Drug Abuse Patient Records regulations: The Federal rules restrict any use of the information to criminally investigate or prosecute any alcohol or drug abuse patient.[facility] the event this information is protected by the Federal Confidentiality of Alcohol and Drug Abuse Patient Records regulations: The Federal rules restrict any use of the information to criminally investigate or prosecute any alcohol or drug abuse patient.[facility] the event this information is protected by the Federal Confidentiality of Alcohol and Drug Abuse Patient Records regulations: The Federal rules restrict any use of the information to criminally investigate or prosecute any alcohol or drug abuse patient.[facility] the event this information is protected by the Federal Confidentiality of Alcohol and Drug Abuse Patient Records regulations: The Federal rules restrict any use of the information to criminally investigate or prosecute any alcohol or drug abuse patient.[facility] the event this information is protected by the Federal Confidentiality of Alcohol and Drug Abuse Patient Records regulations: The Federal rules restrict any use of the information to criminally investigate or prosecute any alcohol or drug abuse patient.[facility] the event this information is protected by the Federal Confidentiality of Alcohol and Drug Abuse Patient Records regulations: The Federal rules restrict any use of the information to criminally investigate or prosecute any alcohol or drug abuse patient.[facility] the event this information is protected by the Federal Confidentiality of Alcohol and Drug Abuse Patient Records regulations: The Federal rules restrict any use of the information to criminally investigate or prosecute any alcohol or drug abuse patient.[facility] the event this information is protected by the Federal Confidentiality of Alcohol and Drug Abuse Patient Records regulations: The Federal rules restrict any use of the information to criminally investigate or prosecute any alcohol or drug abuse patient.[facility] the event this information is protected by the Federal Confidentiality of Alcohol and Drug Abuse Patient Records regulations: The Federal rules restrict any use of the information to criminally investigate or prosecute any alcohol or drug abuse patient.[facility] the event this information is protected by the Federal Confidentiality of Alcohol and Drug Abuse Patient Records regulations: The Federal rules restrict any use of the information to criminally investigate or prosecute any alcohol or drug abuse patient.[facility] the event this information is protected by the Federal Confidentiality of Alcohol and Drug Abuse Patient Records regulations: The Federal rules restrict any use of the information to criminally investigate or prosecute any alcohol or drug abuse patient.[facility] HospitalIn the event this information is protected by the Federal Confidentiality of Alcohol and Drug Abuse Patient Records regulations: The Federal rules restrict any use of the information to criminally investigate or prosecute any alcohol or drug abuse patient.[facility] Care Teams (unrecognized sec tion and content) Occupational Therapist'S Assistant Relationship Specialty Start Date End Date Mya Ferreira MD [address] [place] [address] PCP - General 06/11/02 Occupational Therapist'S Assistant Relationship Specialty Start Date End Date Mya Ferreira MD [address] [place] [address] PCP - General 06/11/02 Occupational Therapist'S Assistant Relationship Specialty Start Date End Date Mya Ferreira MD [address] [place] [address] PCP - General 06/11/02 Occupational Therapist'S Assistant Relationship Specialty Start Date End Date Mya Ferreira MD [address] [place] [address] PCP - General 06/11/02 Occupational Therapist'S Assistant Relationship Specialty Start Date End Date Mya Ferreira MD [address] [place] [address] PCP - General 06/11/02 Occupational Therapist'S Assistant Relationship Specialty Start Date End Date Mya Ferreira MD [address] [place] [address] PCP - General 06/11/02 Occupational Therapist'S Assistant Relationship Specialty Start Date End Date Mya Ferreira MD [address] [place] [address] PCP - General 06/11/02 Occupational Therapist'S Assistant Relationship Specialty Start Date End Date Mya Ferreira MD [address] [place] [address] PCP - General 06/11/02 Occupational Therapist'S Assistant Relationship Specialty Start Date End Date Mya Ferreira MD [address] [place] [address], [place] [address] PCP - General 06/11/02 Occupational Therapist'S Assistant Relationship Specialty Start Date End Date Mya Ferreira MD [address] [place], [place] [address] PCP - General 06/11/02 Reason for Visit (unrecogniz ed section and content) Reason Comments Consult right groin abscess Specialty Diagnoses / Procedures Referred By Contac t Referred To Contact General Surgery Diagnoses Cutaneous abscess, unspecified site Procedures CONSULT TO GENERAL SURGERY OFFICE/OUTPATIENT [facility] 60-74 MINUTES Prudence Villagomez APRN.DIESEL POWERPLANT MECHANIC HELPER [address] [place] [address] Referral ID Status Reason Start Date Expiration Date V isits Requested Visits Authorized [id number] Closed PCP Requested Referral 02/28/2022 02/28/2023 1 [...] PRIMARY CLINICAL RECORDS. [facility] [employer] [facility]. provides no warranty or guarantee of the accuracy or completeness of information in this document.
[2023-09-02 01:00] VITALS: PULSE 80; RESP 14; O2SAT 97
[2023-09-02 02:10] VITALS: BMI 26.3
[2023-09-02 02:14] VITALS: BP 152/85; PULSE 74; RESP 18; TEMP 37; O2SAT 98
[2023-09-02 02:47] VITALS: BP 135/61; PULSE 79; RESP 18; TEMP 36.7; O2SAT 99
[2023-09-02 03:18] LABS: Absolute Lymphocyte Count 1.44 X10^3/uL (0.83-4.51); Absolute Neutrophil Count 4.1 X10^3/uL (2.0-7.7); Basophil# 0.03 X10^3/uL; Basophil% 0.5 % (0-1); Eosinophil# 0.06 X10^3/uL; Hematocrit 41.2 % (37-47); Hemoglobin 13.7 g/dL (12.0-15.0); Lymphocyte # 1.44 X10^3/ul (0.83-4.51); Mean Corp Hgb Conc 33.3 g/dL (32-36); Mean Corpuscular Volume 90.2 fL (81-99); Monocyte# 0.32 X10^3/uL; Monocyte% 5.3 % (0-10); NRBC Flagged by Analyzer 0 % (0-5); Neutrophil # 4.14 X10^3/uL (2.7-7.7); Platelet Count 219 K/mm3 (150-450); RBC Distribution Width CV 12.1 % (11.6-14.6); RBC Distribution Width SD 39.6 fl (35.1-43.9); Red Blood Count 4.57 M/mm3 (4.2-5.4)
--- NOTE | 2023-09-02 03:42 | EKG12_ITS ---
Test Reason : CP ADMIT Blood Pressure : / mmHG Vent. Rate : 070 BPM Atrial Rate : 070 BPM P-R Int : 258 ms QRS Dur : 092 ms QT Int : 408 ms P-R-T Axes : 039 006 028 degrees QTc Int : 440 ms Sinus rhythm with 1st degree A-V block Otherwise normal ECG When compared with ECG of 01-SEP-2023 21:07, MANUAL COMPARISON REQUIRED, DATA IS UNCONFIRMED Confirmed by SHAWNEE VENEGAS, JANEE ([id number]), editor managing newspaper RANDELL INGRAM ([id number]) on 09/02/2023 7:50:47 AM Referred By: PRECIADO Confirmed By:JANEE MALLORY MD
[2023-09-02 03:45] LABS: Troponin-I HS 10 pg/mL (3.0-54.0)
[2023-09-02 03:47] LABS: ALB/GLOB Ratio 1.2 RATIO (0.9-2.4); AST(SGOT) 16 U/L (15-37); Alanine Aminotransfer ALT/SGPT 10 U/L (13-56); Albumin, Serum 3.5 g/dL (3.2-5.0); Alkaline Phosphatase 70 U/L (45-117); Anion Gap 5 (5-15); BUN 17 mg/dL (7-18); BUN/Creat Ratio 23.4 RATIO (10-20); Calcium,Total 8.9 mg/dL (8.5-10.1); Chloride 109 mmol/L (98-107); Cholesterol 208 mg/dL (200); Creatinine, Serum 0.72 mg/dL (0.55-1.02); EST Glomerular Filtration Rate 88 mL/min (>60); Est Glom Filt Rate - Afr Amer 107 mL/min (>60); Estimated Creatinine Clearance 83.54 ml/min; Glucose 107 mg/dL (74-106); High Density Lipoprotein 74 mg/dL; Potassium 4.1 mmol/L (3.5-5.1); Protein, Total 6.5 g/dL (6.4-8.2); Sodium Level 141 mmol/L (136-145); Thyroid Stim Hormone (TSH) 4.05 uIU/mL (0.358-3.74); Triglycerides 69 mg/dL; Very Low Density Lipoprotein 14 mg/dL (5-40)
[2023-09-02] MEDS: Aspirin E.C. 81 MG Tablet PO (06:41)
[2023-09-02 08:09] LABS: T4 Free Direct 1.03 ng/dL (0.76-1.46)
[2023-09-02 08:45] LABS: Hemoglobin A1c 5.3 % (3.8-5.6)
--- NOTE | 2023-09-02 10:23 | PCM.CONS.C ---
Documented by User: INDIA Short 09/02/23 13:03 Assessment & Plan Assessment/Plan (1) Chest pain: QUALIFIERS: Chest pain type: unspecified Qualified Code(s): R07.9 - Chest pain, unspecified (2) Non-sustained ventricular tachycardia: PLAN: Plan Echocardiogram demonstrated an ejection fraction of 50% with regional wall motion abnormalities. Mild mitral valve prolapse. Pharmacologic nuclear stress test was negative for reversible myocardial ischemia. Hyperdynamic left ventricle. With patient's wide-complex tachycardia that was noted while she was in the emergency room recommend upper containing a 14-day event monitor to further assess rhythm. At that time we will decide if any medications need to be added. Did discuss pursuing a heart catheterization based on family history and her concerns over coronary artery disease. Patient declines at this time. She wishes to follow-up with us on an outpatient basis. If patient is still concerned about coronary artery disease can consider cardiac calcium score on an outpatient basis. HPI Consult Data Date of Consult: 09/02/23 HPI Narrative HPI Narrative: TOBIN CLARKE, is a 57 F [address] presented to [facility] ER yesterday with CP. She has a positive family hx of heart disease. Her symptoms began a few hours prior to admission with chest pain that began at rest and was substernal, pressure-like, 7/ 10 and radiating into her right shoulder down to her elbow with nothing seeming to make the pain better or worse. She denies a history of similar previous episodes. She also denies recent illness, recent trauma, recent overexertion or recent medication changes. She denies associated fever, chills, nausea or vomiting. She just felt that was something is seriously wrong with her heart. While in the ER she did have a witnessed 30 second burst of nonsustained ventricular tachycardia with patient feeling a fluttering sensation in her chest but she denies coinciding chest pain with it at that time. She was admitted to observation. Stress and echo are pending. Troponins negative x 3. PFSH Medical History no medical history Allergy/AdvReac Type Severity Reaction Status Date / Time No Known Allergies Allergy Verified 09/01/23 21:10 Surgical History no surgical history Social History Smoking Status: Never smoker ROS ROS Narrative Review of systems: General: Patient denies fevers or chills. HENT: Denies headache, denies stuffy nose, denies sore throat EYES: Denies changes in vision Resp: Denies cough, denies shortness of breath Cardiac: Patient admits to chest pain with brief palpitations. GI: Denies abdominal pain, denies changes in bowel, she also denies nausea or vomiting. : Denies changes in urination Extremity: Denies swelling Musculoskeletal: Negative for myalgias or arthralgias. Neuro: Denies any numbness/tingling Heme: Denies easy bleeding or bruising. Physical Exam Const alert, oriented x3, no apparent distress and healthy appearing HEENT normocephalic, head/scalp atraumatic, hearing grossly normal bilaterally, external ears normal, external nose normal and moist oral mucous membranes Eyes PERRL, EOMs intact bilaterally, conjunctivae normal and no scleral icterus Neck no lymphadenopathy, supple and no JVD Resp normal respiratory effort and clear to auscultation bilaterally Cardio regular rate, regular rhythm, S1 normal heart sound, S2 normal heart sound, no murmurs, no rub, no gallops, no clicks, no JVD and peripheral pulses 2+ throughout GI normal to inspection, nondistended, normoactive bowel sounds, soft to palpation, non-tender and non-distended Extremity normal to inspection, normal capillary refill, no clubbing, cyanosis or edema and no pedal edema Neuro oriented x3, CN's II-XII intact bilaterally, moves all extremities and no focal motor deficits Psych cooperative and affect normal Risk Stratification Risk Stratification Applicable: No Capacity Legal Cloth 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 Next of kin: [place] law dictates a PRIORITY LIST for identifying legal decision-maker/legal next of kin in the following order (LNOK): 1st: The patient?s legal guardian, if any 2nd: The patient's spouse (if status is questionable, consult Risk Management) 3rd: The patient?s adult child(sera) (majority, if multiple children) 4th: The patient?s parents 5th: The patient?s adult siblings (majority, if multiple children siblings) Charges/Coding Visit Charges Office Visits / Consults: 33454 IP Consult L4 Objective Data Vital Signs: Vital Signs Temp Pulse Resp BP Pulse Ox O2 Del Method 98.1 F 79 18 135/61 H 99 Room Air 09/02/23 02:47 09/02/23 02:47 09/02/23 02:47 09/02/23 02:47 09/02/23 02:47 09/02/23 02:47 Oxygen Delivery Method Room Air Weight: 153 lb 6.4 oz Body Mass Index (BMI) 26.3 Lab / Micro Data 09/02/23 03:03 09/02/23 03:03 Labs: Laboratory Results - last 24 hr 09/01/23 21:17: WBC 7.3, RBC 4.97, Hgb 14.7, Hct 45.0, MCV 90.5, MCH 29.6, MCHC 32.7, RDW Std Deviation 40.1, RDW Coeff of Messi 12.1, Plt Count 227, MPV 9.8, Immature Gran % (Auto) 0.300, Neut % (Auto) 78.5 H, Lymph % (Auto) 15.7 L, [place] % (Auto) 4.2, Eos % (Auto) 1.0, Baso % (Auto) 0.3, Absolute Neuts (auto) 5.8, Absolute Lymphs (auto) 1.15, Nucleated RBC % 0, D-Dimer Quant (PE/DVT) 0.35, Sodium 140, Potassium 4.1, Chloride 106, Carbon Dioxide 27.0, Anion Gap 7, BUN 22 H, Creatinine 0.80, Estim Creat Clear Calc 76.63, Est GFR (MDRD) Af Amer 96, Est GFR (MDRD) Non-Af 79, BUN/Creatinine Ratio 27.7 H, Glucose 133 H, Calcium 9.3, Troponin I High Sens 7 09/01/23 23:24: Troponin I High Sens 11 09/02/23 03:03: WBC 6.0, RBC 4.57, Hgb 13.7, Hct 41.2, MCV 90.2, MCH 30.0, MCHC 33.3, RDW Std Deviation 39.6, RDW Coeff of Messi 12.1, Plt Count 219, MPV 10.0, Immature Gran % (Auto) 0.200, Neut % (Auto) 69.0, Lymph % (Auto) 24.0, [place] % (Auto) 5.3, Eos % (Auto) 1.0, Baso % (Auto) 0.5, Absolute Neuts (auto) 4.1, Absolute Lymphs (auto) 1.44, Nucleated RBC % 0, Sodium 141, Potassium 4.1, Chloride 109 H, Carbon Dioxide 27.0, Anion Gap 5, BUN 17, Creatinine 0.72, Estim Creat Clear Calc 83.54, Est GFR (MDRD) Af Amer 107, Est GFR (MDRD) Non-Af 88, BUN/Creatinine Ratio 23.4 H, Glucose 107 H, Hemoglobin A1c 5.3, Calcium 8.9, Total Bilirubin 0.80, AST 16, ALT 10 L, Alkaline Phosphatase 70, Troponin I High Sens 10, Total Protein 6.5, Albumin 3.5, Globulin 3.0, Albumin/Globulin Ratio 1.2, Triglycerides 69, Cholesterol 208 H, LDL Cholesterol 120, VLDL Cholesterol 14, HDL Cholesterol 74, TSH 4.05 H, Free T4 1.03 Cardiology Labs/Tests 09/01/23 21:17: WBC 7.3, RBC 4.97, Hgb 14.7, Hct 45.0, MCV 90.5, MCH 29.6, MCHC 32.7, Plt Count 227, MPV 9.8, Immature Gran % (Auto) 0.300, Neut % (Auto) 78.5 H, Lymph % (Auto) 15.7 L, [place] % (Auto) 4.2, Eos % (Auto) 1.0, Baso % (Auto) 0.3, Absolute Neuts (auto) 5.8, Nucleated RBC % 0, D-Dimer Quant (PE/DVT) 0.35, Sodium 140, Potassium 4.1, Chloride 106, Carbon Dioxide 27.0, Anion Gap 7, BUN 22 H, Creatinine 0.80, Est GFR (MDRD) Af Amer 96, Est GFR (MDRD) Non-Af 79, BUN/Creatinine Ratio 27.7 H, Glucose 133 H, Calcium 9.3 09/02/23 03:03: WBC 6.0, RBC 4.57, Hgb 13.7, Hct 41.2, MCV 90.2, MCH 30.0, MCHC 33.3, Plt Count 219, MPV 10.0, Immature Gran % (Auto) 0.200, Neut % (Auto) 69.0, Lymph % (Auto) 24.0, [place] % (Auto) 5.3, Eos % (Auto) 1.0, Baso % (Auto) 0.5, Absolute Neuts (auto) 4.1, Nucleated RBC % 0, Sodium 141, Potassium 4.1, Chloride 109 H, Carbon Dioxide 27.0, Anion Gap 5, BUN 17, Creatinine 0.72, Est GFR (MDRD) Af Amer 107, Est GFR (MDRD) Non-Af 88, BUN/Creatinine Ratio 23.4 H, Glucose 107 H, Hemoglobin A1c 5.3, Calcium 8.9, Total Bilirubin 0.80, Triglycerides 69, Cholesterol 208 H, LDL Cholesterol 120, VLDL Cholesterol 14, HDL Cholesterol 74 Rhythm: NSR Radiography Diagnostic Testing: Radiology Impression Chest X-Ray 09/01/23 21:30 IMPRESSION: Normal x-ray examination of the chest. Electronically Signed: Madison Chen MD at 22:05 EST Reading Location ID and State: [address] [place] [address] , Service support , Documented by User: Dr. Carley Ozuna MD 09/02/23 16:44 Assessment & Plan Assessment/Plan (1) Chest pain: QUALIFIERS: Chest pain type: unspecified Qualified Code(s): R07.9 - Chest pain, unspecified (2) Non-sustained ventricular tachycardia: PLAN: Plan Echocardiogram demonstrated an ejection fraction of 50% with regional wall motion abnormalities. Mild mitral valve prolapse. Pharmacologic nuclear stress test was negative for reversible myocardial ischemia. Hyperdynamic left ventricle. With patient's wide-complex tachycardia that was noted while she was in the emergency room recommend [facility] containing a 14-day event monitor to further assess rhythm. At that time we will decide if any medications need to be added. Did discuss pursuing a heart catheterization based on family history and her concerns over coronary artery disease. Patient declines at this time. She wishes to follow-up with us on an outpatient basis. If patient is still concerned about coronary artery disease can consider cardiac calcium score on an outpatient basis. Patient advised to follow-up with the cardiology team at [facility] For continuation of cardiac care. From cardiac standpoint patient can be discharged if she remains stable with no further episode of chest pain. Also to discuss as an outpatient evaluation by CTA to assess for ascending aorta/aortic arch. HPI Consult Data Date of Consult: 09/02/23 [facility] Medical History no medical history Allergy/AdvReac Type Severity Reaction Status Date / Time No Known Allergies Allergy Verified 09/01/23 21:10 Surgical History no surgical history Social History Smoking Status: Never smoker Lab / Micro Data 09/02/23 03:03 09/02/23 03:03
[2023-09-02 11:47] VITALS: BP 126/64; PULSE 86; RESP 16; TEMP 36.6; O2SAT 100
--- NOTE | 2023-09-02 12:18 | STRESSREP ---
Stress Test Report Lexiscan sestamibi/myocardial perfusion stress test. Location; 57-year-old patient presented to the hospital complaining of symptoms of chest pain and she has a change in the monitor with episodes of short SVT. She has significant family history of CAD. Perfusion SPECT analysis: Review of the images demonstrate normal uptake of sestamibi at rest, post stress images demonstrate similar uptake of sestamibi to the resting images, homogeneous tracer uptake With no evidence of reversible myocardial ischemia. Reduced tracer uptake in the inferior myocardium consistent with prior inferior ME. Gated SPECT analysis: The gated ejection fraction is [ 88 %]. Wall motion showed hyperdynamic left ventricle. Conclusion: Negative Lexiscan sestamibi myocardial perfusion study for reversible myocardial ischemia Hyperdynamic left ventricle. Patient has no symptoms to report, in particular no chest pain Patient will be evaluated further with event monitor as an outpatient. Carley Ozuna MD,FACC,[facility]
--- NOTE | 2023-09-02 13:14 | STRESSREP_ITS ---
Stress Test Report Pharmacologic/Lexiscan myocardial perfusion stress test. 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 Her father has history of myocardial infarction . Stress protocol: Resting EKG demonstrates. Normal sinus rhythm. 0.4 mg of regadenoson was infused per usual protocol followed by rapid intravenous saline flush injection continuous EKG monitoring was performed. The maximum heart rate attained was 133 bpm which was 81% of maximum predicted heart . Stress EKG showed[, no significant change from the resting EKG, with maximum heart rate of 133 bpm. Arrhythmia: No arrhythmia demonstrated Symptoms: Patient had no symptoms of chest pain Blood pressure at rest: [132/62 blood pressure at the end of stress: 124/62] Myocardial perfusion protocol. 11.8 mCi ]of Technetium 99m Sestamibi was injected at rest. [ 0.4 mg ]of Regadenoson was infused per usual protocol peak infusion 34.6 mCi ]of Technetium 99m sestamibi was injected. Stress images were obtained stress and rest images were reconstructed and compared in the short axis vertical and horizontal long axis. Gated images were also obtained Perfusion SPECT analysis: Review of the images demonstrate normal uptake of sestamibi at rest, post stress images demonstrate similar uptake of sestamibi to the resting images, homogeneous tracer uptake With no evidence of reversible myocardial ischemia. Reduced tracer uptake in the inferior myocardium consistent with prior inferior PR. Gated SPECT analysis: The gated ejection fraction is 51% Conclusion: Negative Lexiscan sestamibi myocardial perfusion study for reversible myocardial ischemia Low normal ejection fraction 51% Patient has no symptoms to report, in particular no chest pain Recommendation; #1 patient to follow-up with the cardiology team with event monitor If she had further episode to discuss need for cardiac catheterization which can be set up as an outpatient The finding of the stress test discussed with the patient as well as the today at bedside Carley Ozuna MD,FACC,[facility]
[2023-09-02] MEDS: Acetaminophen 325 MG Tablet 650 MG PO (14:29)
--- NOTE | 2023-09-02 14:43 | PCM.DC ---
Discharge Instructions Diet Discharge Diet: No restrictions Activity Discharge Activity: Return to Normal Activity Dressing / Incision Call your doctor if you observe: Fever of 101 or Higher, Shortness of breath, Dizziness, Fainting spells, Swelling in the ankles, Chest pain and Increased palpitations (irregular heartbeat) Follow Up Care Test Results: Test results from this visit will be discussed in further detail at your follow-up appointment, if applicable. Discharge Plan Admission Admit Date/Time: 09/02/23 00:41 Attending Provider: Tra Badillo Primary Care Provider: Elas Ferreira Consulting Providers: Sushil Conti; Alannah Bean; Nicolette Ash; Duran Zambrano; Bello Wilson; Tamiko Lopez; Vince Sutherland; Jose Wolfe; Marco Herr; Carley Ozuna; Cali Magallon; Jatinder Taveras; Rodrigo White; Aye Traylor; Marv Johnson; Shan Majano; Ajit Leblanc; Chong aLu; To Vergara AGRISCIENCE TECHNOLOGY INSTRUCTOR; Alannah Hung AGRISCIENCE TECHNOLOGY INSTRUCTOR; Shayy Garcia Discharge Orders/Prescriptions Prescriptions: Discontinued meloxicam 15 mg tablet 15 mg PO DAILY Patient Comments: TAKE 1 TABLET BY MOUTH ONCE DAILY Referrals / Follow Up: Elsa Ferreira MD [Primary Care Provider] - Shayy Garcia PA [Med Staff - [facility]] - 10/14/23 1:00 pm Disposition Disposition (needs filled in before D/C Order can be placed): Home, Self Care
--- NOTE | 2023-09-02 14:44 | PCM.DC.SUM ---
Providers Date of Admission: 09/02/23 Primary Care Physician: Dr. Elsa Ferreira MD Consultations 09/02/23 07:14 Consult: Cardiology Routine Consulting Provider: [facility] Reason for Consult: NSVT and Chest Pain. EMERGENT Consult: No MD Notified: Yes Date Notified: 09/02/23 Time Notified: 07:14 Method of Notification: Verbal Method of Consult:: In-Person Reason For Visit: CHEST PAIN Diagnosis Discharge Diagnosis (1) Chest pain: Status: Acute Code(s): R07.9 - Chest pain, unspecified Qualifiers: Chest pain type: unspecified Qualified Code(s): R07.9 - Chest pain, unspecified (2) Non-sustained ventricular tachycardia: Status: Acute Code(s): I47.29 - Other ventricular tachycardia Hospital Course Operations None Procedures 2-D Echocardiogram Summary of Care Provided Minutes Spent on Discharge: 34 Hospital Course: Per HPI: TOBIN CLARKE, is a 57 F with a past medical history of being overweight; with BMI of 27.4 present on admission, history of renal calculi (2018), osteoarthritis; on Meloxicam, history of negative NST (~2017) resulting in diagnosis of GERD; with esophageal spasm and a positive family history of coronary artery disease in her father who underwent PPM/AICD placement for severe systolic CHF with left ventricular ejection fraction of 16% who presents to [facility] ER complaining of chest pain. Mrs. Clarke reports her symptoms began a few hours prior to admission with chest pain that began at rest and was substernal, pressure-like, ~7 out of 10 and radiating into her right shoulder down to her elbow with nothing seeming to make the pain better or worse. She denies a history of similar previous episodes. She also denies recent illness, recent trauma, recent overexertion or recent medication changes. She denies associated fever, chills, nausea or vomiting but she does admit to a feeling of foreboding that something is seriously wrong with her heart. She admits to drinking Pepsi occasionally and only had 4 to 6 ounces earlier in the morning but none later in the afternoon and she denies other significant caffeine or stimulant intake. 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 In the ER she had a witnessed 30 second burst of nonsustained ventricular tachycardia with patient feeling a fluttering sensation in her chest but she denies coinciding chest pain with it at that time. She was then admitted to the CDU under observation status for ongoing care for stay that is expected to be less than 48 hours. Hospital Course: 1. Chest pain?57-year-old female with significant family history for coronary artery disease and CHF presented to the hospital with chest pain. She said that it started several hours prior to admission and then when she presented to the ER she was found to have nonsustained ventricular tachycardia so cardiology was also consulted. Echo demonstrated some minor wall motion abnormalities and stress test was not significantly ischemic however cardiology had recommended based on the findings to initially proceed with cardiac catheterization however she refused stating that she did not think that her symptoms warranted a cardiac cath. She denies any current chest pain and was able to ambulate around the hospital unit as well as downstairs in the [employer] with no significant chest pain. We do recommend a Holter monitor that will be ordered by cardiology and delivered to her house and for her to follow-up with cardiology as an outpatient. I discussed with her and her the plan for possible discharge today they expressed understanding of the risk benefits of going home and when to go home today. Physical Exam Narrative General: Alert, Oriented x3, Cooperative, No apparent distress HEENT: Atraumatic, PERRLA, EOMI, Normocephalic Oral: Moist Mucosa Neck: Supple, No JVD Lungs: Clear to auscultation, Normal air movement, No rhonchi, No wheeze, No rales Cardiovascular: Regular rate, Regular Rhythm, Normal S1, Normal S2, No murmurs Abdomen: Soft, Non Tender, Non-Distended, No Hepato-splenomegaly Extremities: No edema, Capillary Refill Less than 3 Seconds Skin: No rashes, No breakdown Musculoskeletal: No Tenderness to Palpation of Joints or Extremities Neurological: Cranial nerves II-XII grossly intact, Motor Exam 5/5 strength throughout, Sensory exam intact to light touch and pain Psych/Mental Status: Normal Affect, Appropriate Weight / BMI Weight Weight: 153 lb 6.4 oz Body Mass Index (BMI) 26.3 ABG / Lab / Microbiology Data 09/02/23 03:03 09/02/23 03:03 Laboratory: Laboratory Results - last 24 hr 09/01/23 21:17: WBC 7.3, RBC 4.97, Hgb 14.7, Hct 45.0, MCV 90.5, MCH 29.6, MCHC 32.7, RDW Std Deviation 40.1, RDW Coeff of Messi 12.1, Plt Count 227, MPV 9.8, Immature Gran % (Auto) 0.300, Neut % (Auto) 78.5 H, Lymph % (Auto) 15.7 L, [place] % (Auto) 4.2, Eos % (Auto) 1.0, Baso % (Auto) 0.3, Absolute Neuts (auto) 5.8, Absolute Lymphs (auto) 1.15, Nucleated RBC % 0, D-Dimer Quant (PE/DVT) 0.35, Sodium 140, Potassium 4.1, Chloride 106, Carbon Dioxide 27.0, Anion Gap 7, BUN 22 H, Creatinine 0.80, Estim Creat Clear Calc 76.63, Est GFR (MDRD) Af Amer 96, Est GFR (MDRD) Non-Af 79, BUN/Creatinine Ratio 27.7 H, Glucose 133 H, Calcium 9.3, Troponin I High Sens 7 09/01/23 23:24: Troponin I High Sens 11 09/02/23 03:03: WBC 6.0, RBC 4.57, Hgb 13.7, Hct 41.2, MCV 90.2, MCH 30.0, MCHC 33.3, RDW Std Deviation 39.6, RDW Coeff of Messi 12.1, Plt Count 219, MPV 10.0, Immature Gran % (Auto) 0.200, Neut % (Auto) 69.0, Lymph % (Auto) 24.0, [place] % (Auto) 5.3, Eos % (Auto) 1.0, Baso % (Auto) 0.5, Absolute Neuts (auto) 4.1, Absolute Lymphs (auto) 1.44, Nucleated RBC % 0, Sodium 141, Potassium 4.1, Chloride 109 H, Carbon Dioxide 27.0, Anion Gap 5, BUN 17, Creatinine 0.72, Estim Creat Clear Calc 83.54, Est GFR (MDRD) Af Amer 107, Est GFR (MDRD) Non-Af 88, BUN/Creatinine Ratio 23.4 H, Glucose 107 H, Hemoglobin A1c 5.3, Calcium 8.9, Total Bilirubin 0.80, AST 16, ALT 10 L, Alkaline Phosphatase 70, Troponin I High Sens 10, Total Protein 6.5, Albumin 3.5, Globulin 3.0, Albumin/Globulin Ratio 1.2, Triglycerides 69, Cholesterol 208 H, LDL Cholesterol 120, VLDL Cholesterol 14, HDL Cholesterol 74, TSH 4.05 H, Free T4 1.03 Radiography Diagnostic Testing: Radiology Impression Chest X-Ray 09/01/23 21:30 IMPRESSION: Normal x-ray examination of the chest. Electronically Signed: Madison Chen MD at 22:05 EST Reading Location ID and State: [facility] / [place] , Service support , Echocardiogram 09/02/23 00:51 Interpretation Summary The estimated ejection fraction is 50 %. There are regional wall motion abnormalities as specified. Mild diffuse mitral valve thickening. Mild mitral valve prolapse. Mild (1+) mitral valve insufficiency. Ordering Physician: Sushil Conti Referring Physician: Elsa Ferreira M.D. Performed By: Maira Beckham KYLEE D/C Instructions Discharge Diet: No restrictions Call your doctor if you observe: Fever of 101 or Higher, Shortness of breath, Dizziness, Fainting spells, Swelling in the ankles, Chest pain and Increased palpitations (irregular heartbeat) Meaningful Use Info Meaningful Use Diagnoses (Choose all that apply): None applicable Discharge Plan Admission Admit Date/Time: 09/02/23 00:41 Attending Provider: Tra Badillo Primary Care Provider: Elsa Ferreira Consulting Providers: Sushil Conti; Alannah Bean; Nicolette Ash; Duran Zambrano; Bello Wilson; Tamiko Lopez; Vince Sutherland; Jose Wolfe; Marco Herr; Carley Ozuna; Cali Magallon; Jatinder Taveras; Rodrigo White; Aye Traylor; Marv Johnson; Shan Majano; Ajit Leblanc; Chong Lau; To Vergara MINISTER ASSISTANT; Alannah Hung MINISTER ASSISTANT; Shayy Garcia Discharge Orders/Prescriptions Prescriptions: Discontinued meloxicam 15 mg tablet 15 mg PO DAILY Patient Comments: TAKE 1 TABLET BY MOUTH ONCE DAILY Referrals / Follow Up: Elsa Ferreira MD [Primary Care Provider] - Shayy Garcia PA [Med Staff - [facility] Practice Prof] - 10/14/23 1:00 pm Disposition Disposition (needs filled in before D/C Order can be placed): Home, Self Care Charges/Coding Visit Charges Inpatient E&M: 10786 Disch Hosp >30min
--- NOTE | 2023-09-02 15:06 | PHA.DC.MR.R ---
Pharmacy [place] Med Reconciliation Pharmacy Service has performed discharge medication reconciliation for this patient. Home medication discontinued, no new medications. The patient's discharge medication list was reviewed for discrepancies and discrepancies were resolved.
[2023-09-02 15:42] VITALS: BP 136/73; PULSE 84; RESP 16; O2SAT 100
== END 2023-09-02 16:00 | disposition home or self-care (01) ==
LOC: ED 09-02 00:43 → MS2 09-02 00:49
PROVIDERS: Admitting Provider Internal Medicine; Emergency Provider Emergency Medicine; PCP Internal Medicine; Visit Provider Family Medicine
DX: R07.89 Other chest pain (principal); I47.29 Other ventricular tachycardia; K21.9 Gastro-esophageal reflux disease without esophagitis; Z82.49 Family history of ischemic heart disease and other diseases of the circulatory system; Z79.899 Other long term (current) drug therapy; M19.90 Unspecified osteoarthritis, unspecified site
CPT/HCPCS: 71045; 78452; 80048; 80053; 80061; 83036; 84439; 84443; 84484; 85025; 85379; 93005; 93017; 93306; 99221; 99285; A9500; A4216; G0378; J2785

== ENCOUNTER → 2023-10-29 | Outpatient (CLI) | payer BC, SELFPAY ==
[2023-10-29 13:40] LABS: Absolute Neutrophil Count 4.5 X10^3/uL (2.0-7.7); Basophil# 0.03 X10^3/uL; Basophil% 0.5 % (0-1); Eosinophil# 0.07 X10^3/uL; Eosinophils% 1.2 % (0-5); Hematocrit 44.8 % (37-47); Hemoglobin 14.8 g/dL (12.0-15.0); Lymphocyte % 18.5 % (19-41); Mean Corpuscular Hgb 30.6 pg (27.0-32.0); Mean Corpuscular Volume 92.8 fL (81-99); Mean Platelet Vol. 10.6 fl (6.2-12.0); Monocyte# 0.25 X10^3/uL; Monocyte% 4.2 % (0-10); NRBC Flagged by Analyzer 0 % (0-5); Neutrophil # 4.47 X10^3/uL (2.7-7.7); Neutrophil % 75.1 % (47-70); Platelet Count 246 K/mm3 (150-450); RBC Distribution Width CV 12.5 % (11.6-14.6); RBC Distribution Width SD 42.6 fl (35.1-43.9); Red Blood Count 4.83 M/mm3 (4.2-5.4)
[2023-10-29 13:49] LABS: Prothrombin Time (Protime)PT. 13.3 SECONDS (11.7-14.9)
[2023-10-29 13:50] LABS: Anion Gap 4 (5-15); BUN 12 mg/dL (7-18); BUN/Creat Ratio 14.3 RATIO (10-20); Calcium,Total 9.2 mg/dL (8.5-10.1); Chloride 106 mmol/L (98-107); Creatinine, Serum 0.84 mg/dL (0.55-1.02); EST Glomerular Filtration Rate 75 mL/min (>60); Est Glom Filt Rate - Afr Amer 90 mL/min (>60); Glucose 123 mg/dL (74-106); Partial Thromboplast Time 27.1 Seconds (24.1-36.2); Potassium 4.1 mmol/L (3.5-5.1); Sodium Level 139 mmol/L (136-145)
== END | disposition home or self-care (01) ==
PROVIDERS: PCP Internal Medicine; Referring Provider Physician Assistant Medical; Visit Provider Physician Assistant Medical
DX: I47.29 Other ventricular tachycardia (principal)
CPT/HCPCS: 36415; 80048; 85025; 85610; 85730

== ENCOUNTER 2023-11-03 07:04 | Day surgery (SDC) | payer BC, SELFPAY ==
[2023-10-31 11:26] VITALS: BMI 26.4
--- NOTE | 2023-11-04 14:26 | CL.D_ITS ---
Patient Name: TOBIN CLARKE Study Date: 11/03/2023 Performing: Vince Sutherland MD Ht: 64 inches 162.56 cm : 1965 Wt: 153.99 lbs 69.85 kg Age: 57 Gender: female BSA: 1.75 PROCEDURE(S) PERFORMED [id number]-([id number])LHC/COR/LV CLINICAL PROFILE AND INDICATIONS Indications: Suspected CAD Heart Failure: None Stress/Imaging Stress/Image Study Performed: No CAD Presentations: Symptom unlikely to be ischemic. CONCLUSIONS Mild nonobstructive LAD disease, and mild mitral valve prolapse, and preserved ejection fraction. RECOMMENDATIONS Medical therapy DESCRIPTION OF PROCEDURE The patient arrived to the procedure lab. The risks and benefits of the procedure as well as a full description of our services here and current unavailability of surgical backup were fully explained to the patient and/or their significant other prior to the catheterization. The Timeout was completed, verifying the correct patient and procedure. The patient's procedural site was prepped and draped in the usual fashion. Local anesthetic was given subcutaneously to right radial region with Lidocaine 2%. Using a modified Seldinger technique, arterial access was obtained via the right radial artery, a 6Fr sheath was inserted. Left Coronary Artery selective angiography was performed in multiple views using a 5 Fr. 4.0 Rogers catheter. Right Coronary Artery selective angiography was then performed in multiple views using a 5 Fr. 4.0 Rogers catheter. Left Ventriculography was performed in TROY projection using a 5 Fr. Pigtail catheter. LV to AO pullback pressures were then recorded.The arterial sheath was pulled and a TR Band was applied for hemostasis w/ 10ml air CORONARY ANGIOGRAPHY DOMINANCE: Right Dominant LEFT HEART ASSESSMENT Left Ventricular Ejection Fraction: by LV Gram 60 % Normal LV wall motion Normal Left Ventricular systolic function LEFT MAIN: Angiographically normal LEFT ANTERIOR DESCENDING ARTERY: PROX LAD: Smooth 40% stenosis noted CIRCUMFLEX ARTERY: Angiographically normal RIGHT CORONARY ARTERY: No significant disease noted VALVE FINDINGS: Mitral Valve Prolapse Mild COMPLICATIONS No Complications PROCEDURE MEDICATIONS Versed 1 mg IV Fentanyl 50 mcg IV Versed 1 mg IV Oxygen: 2 L/min via nasal cannula Aspirin (325mg) 1 Tabs PO @ 11/03/2023 07:30:46 Heparin given IA 11/03/2023 08:04:43 Verapamil 2.5mg, Ntg 100mcgs, 3000 units of Heparin given IA 11/03/2023 08:04:43 SUMMARY OF HEMODYNAMIC DATA Time AIR REST ECG 07:28:34 AO 125/79 (102) SA 08:06:34 LV 131/7, 17 08:11:37 LV 129/12, 17 08:11:46 LV 137/14, 21 08:12:12 LV 128/14, 22 08:12:20 LVp 126/14, 21 08:12:24 AOp 133/76 (103) 08:12:31 Signed By Vince Sutherland MD On 11/03/2023 08:20:51 Vince Sutherland MD
== END 2023-11-03 11:30 | disposition home or self-care (01) ==
PROVIDERS: PCP Internal Medicine; Referring Provider Internal Medicine Cardiovascular Disease; Visit Provider Internal Medicine Cardiovascular Disease
DX: I25.10 Atherosclerotic heart disease of native coronary artery without angina pectoris (principal); I47.29 Other ventricular tachycardia; I34.1 Nonrheumatic mitral (valve) prolapse; R93.1 Abnormal findings on diagnostic imaging of heart and coronary circulation; Z79.899 Other long term (current) drug therapy
CPT/HCPCS: 93458; 99152; 99153; J7040; Q9967; C1769; C1894